=== PATIENT | male | born 1955 | race Caucasian/White ===

== ENCOUNTER 2019-04-14 00:21 | Emergency (ER) | payer OTHER ==
[2019-04-14] MEDS ORDERED: NA CHLORIDE 0.9% 1,000 ML ONE (01:03)
[2019-04-14 01:27] LABS: Absolute Lymphocytes (CBC) 1.3 K/uL (0.7-4.9); Basophils % 0.2 % (0-1.3); Lymphocytes % 10.6 % (15.3-44.8); MPV 9.8 fL (7.6-11.3); RBC Red Blood Cell Count 5.36 M/uL (4.33-5.43)
[2019-04-14 01:37] LABS: ALT/SGPT 38 U/L (12-78); AST/SGOT 18 U/L (15-37); Albumin 3.4 g/dL (3.4-5.0); Alkaline Phosphatase 87 U/L (45-117); BUN Blood Urea Nitrogen 18 mg/dL (7-18); Bicarbonate 28 mmol/L (21-32); Bilirubin Direct < 0.1 mg/dL (0-0.2); Bilirubin Total 0.3 mg/dL (0.2-1.0); Glucose Level 109 mg/dL (74-106); Lipase 111 U/L (73-393); Potassium 4.1 mmol/L (3.5-5.1); Protein, Total 6.7 g/dL (6.4-8.2); Sodium Level 139 mmol/L (136-145)
--- NOTE | 2019-04-14 03:17 | EDPHYS ---
Physician Documentation [facility] Name: Ramiro Cardoza Age: 63 yrs Sex: Male : 1955 Arrival Date: 04/14/2019 Time: 00:22 Bed 6 Private MD: ED Physician Watson Mcdowell HPI: 04/14 00:59 This 63 yrs old Male presents to ER via EMS with complaints of Abdominal Pain.pm1 00:59 The patient presents with abdominal pain in the suprapubic area. Onset: The pm1 symptoms/episode began/occurred last night, at 22:00. The symptoms do not radiate. Associated signs and symptoms: Pertinent negatives: nausea, vomiting, and diarrhea, chest pain, dysuria, fever, shortness of breath. The symptoms are described as burning. Modifying factors: The symptoms are alleviated by large bowel movement. the symptoms are aggravated by possibly from unusually large fast food lunch today. Severity of pain: in the emergency department the pain has improved markedly, is a 2 / 10. The patient has not experienced similar symptoms in the past. It is unknown whether or not the patient has recently seen a physician. Historical: - Allergies: 00:13 Codeine; jb4 - Home Meds: 00:13 Diltiazem Oral [Active]; Flexeril Oral [Active]; metoprolol [Active]; Medrol Oral jb4 [Active]; - PMHx: 00:13 Atrial Fib; chronic back pain; Hypertension; jb4 - PSHx: 00:13 None; jb4 - Immunization history:: Adult Immunizations up to date. - Social history:: Smoking status: Patient/guardian denies using tobacco, Patient uses alcohol, but reports only rare drinking. Patient/guardian denies using street drugs. - Ebola Screening: : No symptoms or risks identified at this time. ROS: 00:59 Constitutional: Negative for fever, chills, and weight loss, Neck: Negative for injury, pm1 pain, and swelling, Cardiovascular: Negative for chest pain, palpitations, and edema, Respiratory: Negative for shortness of breath, cough, wheezing, and pleuritic chest pain. 00:59 Back: Negative for injury and pain, : Negative for injury, bleeding, discharge, and swelling, MS/Extremity: Negative for injury and deformity, Skin: Negative for injury, rash, and discoloration, Neuro: Negative for headache, weakness, numbness, tingling, and seizure. 00:59 Abdomen/GI: Positive for abdominal pain, of the suprapubic area, Negative for nausea, vomiting, and diarrhea, constipation. Exam: 00:59 Constitutional: This is a well developed, well nourished patient who is awake, alert, pm1 and in no acute distress. Head/Face: Normocephalic, atraumatic. Neck: Trachea midline, no thyromegaly or masses palpated, and no cervical lymphadenopathy. Supple, full range of motion without nuchal rigidity, or vertebral point tenderness. No Meningismus. Chest/axilla: Normal chest wall appearance and motion. Nontender with no deformity. No lesions are appreciated. Cardiovascular: Regular rate and rhythm with a normal S1 and S2. No gallops, murmurs, or rubs. Normal PMI, no JVD. No pulse deficits. Respiratory: Lungs have equal breath sounds bilaterally, clear to auscultation and percussion. No rales, rhonchi or wheezes noted. No increased work of breathing, no retractions or nasal flaring. Back: No spinal tenderness. No costovertebral tenderness. Full range of motion. 00:59 Skin: Warm, dry with normal turgor. Normal color with no rashes, no lesions, and no evidence of cellulitis. MS/ Extremity: Pulses equal, no cyanosis. Neurovascular intact. Full, normal range of motion. 00:59 Abdomen/GI: Inspection: obese Bowel sounds: normal, Palpation: abdomen is soft and non-tender, in all quadrants, mass, is not appreciated, rebound tenderness, is not appreciated. 00:59 Neuro: Orientation: is normal, Motor: is normal, moves all fours. Vital Signs: 00:13 BP 167 / 83; Pulse 71; Resp 16; Temp 97.5(O); Pulse Ox 97% on R/A; Weight 129.27 kg jb4 (R); Height 6 ft. 0 in. (182.88 cm) (R); Pain 7/10; 01:00 BP 149 / 90; Pulse 64; Resp 16; Pulse Ox 96% on R/A; jb4 02:30 BP 147 / 88; Pulse 63; Resp 16; Pulse Ox 96% on R/A; jb4 03:30 BP 128 / 75; Pulse 55; Resp 18; Pulse Ox 95% on R/A; Pain 1/10; lp1 00:13 Body Mass Index 38.65 (129.27 kg, 182.88 cm) jb4 MDM: 00:23 Patient medically screened. pm1 00:59 ED course: Patient refused pain medications offered in the ER. Patient's pain currently pm1 05/14. 03:14 Data reviewed: vital signs. Data interpreted: Pulse oximetry: on room air is 96 %. pm1 Interpretation: normal. 03:15 Counseling: I had a detailed discussion with the patient and/or guardian regarding: the pm1 historical points, exam findings, and any diagnostic results supporting the discharge/admit diagnosis, lab results, radiology results, the need for outpatient follow up, to return to the emergency department if symptoms worsen or persist or if there are any questions or concerns that arise at home. 04/14 00:40 Order name: Basic Metabolic Panel; Complete Time: 01:49 pm1 04/14 00:40 Order name: CBC with Diff; Complete Time: 01:35 pm1 04/14 00:40 Order name: Creatinine for Radiology; Complete Time: 01:35 pm1 04/14 00:40 Order name: Hepatic Function; Complete Time: :49 pm1 04/14 00:40 Order name: Lipase; Complete Time: :49 pm1 04/14 00:40 Order name: CT Abd/Pelvis - IV Contrast Only pm1 04/14 00:40 Order name: IV Saline Lock; Complete Time: 01:04 pm1 04/14 00:40 Order name: Labs collected and sent; Complete Time: 01:05 pm1 Administered Medications: 01:04 Drug: NS 0.9% 1000 ml Route: IV; Rate: 1000 ml; Site: right antecubital; jb4 02:00 Follow up: Response: No adverse reaction; IV Status: Completed infusion; IV Intake: jb4 1000ml 03:30 Drug: Bentyl 20 mg Route: PO; lp1 03:40 Follow up: Response: Medication administered at discharge. lp1 Disposition: 04:21 Co-signature as Attending Physician, Watson Mcdowell MD I agree with the assessment and kdr plan of care. Disposition: 04/14/19 03:16 Discharged to Home. Impression: Unspecified abdominal pain. - Condition is Stable. - Discharge Instructions: Abdominal Pain, Adult. - Prescriptions for Bentyl 20 mg Oral Tablet - take 1 tablet by ORAL route every 6 hours As needed; 20 tablet. - Medication Reconciliation Form, Thank You Letter, Antibiotic Education, Prescription Opioid Use form. - Follow up: Emergency Department; When: As needed; Reason: Worsening of condition. Follow up: Private Physician; When: 2 - 3 days; Reason: Recheck today's complaints, Continuance of care, Re-evaluation by your physician. - Problem is new. - Symptoms have improved. Signatures: Dispatcher [employer] EDMS Watson Mcdowell MD MD kdr Martha Martinez RN RN lp1 Suman Martínez NP [employer] pm1 Yonas Emerson, RN RN jb4 Corrections: (The following items were deleted from the chart) 06:12 03:16 04/14/2019 03:16 Discharged to Home. Impression: Unspecified abdominal pain. lp1 Condition is Stable. Forms are Medication Reconciliation Form, Thank You Letter, Antibiotic Education, Prescription Opioid Use. Follow up: Emergency Department; When: As needed; Reason: Worsening of condition. Follow up: Private Physician; When: 2 - 3 days; Reason: Recheck today's complaints, Continuance of care, Re-evaluation by your physician. Problem is new. Symptoms have improved. pm1
--- NOTE | 2019-04-14 03:17 | ER ---
Nurse's Notes [facility] Name: Ramiro Cardoza Age: 63 yrs Sex: Male : 1955 Arrival Date: 04/14/2019 Time: 00:22 Bed 6 Private MD: Diagnosis: Unspecified abdominal pain Presentation: 04/14 00:13 Presenting complaint: Patient states: The pain was present prior to having a bm, I jb4 thought I was just constipated. After the bm I got no relief and the pain just got worse. EMS states: Pt starting having a sudden sever lower abdominal pain after having a bowel movement. the pain is described as an intense burning pain and a boxer punching him in the stomach. 00:13 Transition of care: patient was not received from another setting of care. Onset of jb4 symptoms was April 14, 2019. Risk Assessment: Do you want to hurt yourself or someone else? Patient reports no desire to harm self or others. Initial Sepsis Screen: Does the patient meet any 2 criteria? No. Patient's initial sepsis screen is negative. Does the patient have a suspected source of infection? Yes: Acute abdominal pain. Care prior to arrival: None. 00:13 Method Of Arrival: EMS: [facility] jb4 00:13 Acuity: VICKIE 3 jb4 Historical: - Allergies: 00:13 Codeine; jb4 - Home Meds: 00:13 Diltiazem Oral [Active]; Flexeril Oral [Active]; metoprolol [Active]; Medrol Oral jb4 [Active]; - PMHx: 00:13 Atrial Fib; chronic back pain; Hypertension; jb4 - PSHx: 00:13 None; jb4 - Immunization history:: Adult Immunizations up to date. - Social history:: Smoking status: Patient/guardian denies using tobacco, Patient uses alcohol, but reports only rare drinking. Patient/guardian denies using street drugs. - Ebola Screening: : No symptoms or risks identified at this time. Screenin:13 Abuse screen: Denies threats or abuse. Nutritional screening: No deficits noted. jb4 Tuberculosis screening: No symptoms or risk factors identified. Fall Risk None identified. Assessment: 00:13 General: Appears in no apparent distress. comfortable, Behavior is calm, cooperative, jb4 appropriate for age. Pain: Complains of pain in right lower quadrant and left lower quadrant Pain does not radiate. Pain currently is 7 out of 10 on a pain scale. Quality of pain is described as burning, Punching pain. Neuro: Level of Consciousness is awake, alert, obeys commands, Oriented to person, place, time, situation. Cardiovascular: Respiratory: Airway is patent Respiratory effort is even, unlabored, Respiratory pattern is regular, symmetrical. GI: No signs and/or symptoms were reported involving the gastrointestinal system. : No signs and/or symptoms were reported regarding the genitourinary system. EENT: No signs and/or symptoms were reported regarding the EENT system. Derm: Skin is intact, Skin is pink, warm \T\ dry. Musculoskeletal: Circulation, motion, and sensation intact. Range of motion: intact in all extremities. 01:05 Reassessment: Patient appears in no apparent distress at this time. Patient and/or jb4 family updated on plan of care and expected duration. Pain level reassessed. Patient is alert, oriented x 3, equal unlabored respirations, skin warm/dry/pink. 02:00 Reassessment: Patient appears in no apparent distress at this time. Patient and/or jb4 family updated on plan of care and expected duration. Pain level reassessed. Patient is alert, oriented x 3, equal unlabored respirations, skin warm/dry/pink. 02:53 Reassessment: Patient appears in no apparent distress at this time. Patient and/or jb4 family updated on plan of care and expected duration. Pain level reassessed. Patient is alert, oriented x 3, equal unlabored respirations, skin warm/dry/pink. 03:42 Reassessment: Patient appears in no apparent distress at this time. Patient is alert, lp1 oriented x 3, equal unlabored respirations, skin warm/dry/pink. Patient given discharge instructions; waiting for ride home. Vital Signs: 00:13 BP 167 / 83; Pulse 71; Resp 16; Temp 97.5(O); Pulse Ox 97% on R/A; Weight 129.27 kg jb4 (R); Height 6 ft. 0 in. (182.88 cm) (R); Pain 7/10; 01:00 BP 149 / 90; Pulse 64; Resp 16; Pulse Ox 96% on R/A; jb4 02:30 BP 147 / 88; Pulse 63; Resp 16; Pulse Ox 96% on R/A; jb4 03:30 BP 128 / 75; Pulse 55; Resp 18; Pulse Ox 95% on R/A; Pain 1/10; lp1 00:13 Body Mass Index 38.65 (129.27 kg, 182.88 cm) jb4 ED Course: 00:13 Arm band placed on right wrist. jb4 00:13 Patient has correct armband on for positive identification. Placed in gown. Bed in low jb4 position. Call light in reach. Side rails up X 1. 00:22 Patient arrived in ED. ds1 00:23 Suman Martínez NP is PHCP. pm1 00:23 Watson Mcdowell MD is Attending Physician. pm1 00:29 Triage completed. jb4 00:46 Yonas Emerson, RN is Primary Nurse. jb4 02:31 Inserted saline lock: 20 gauge in left antecubital area, using aseptic technique. oe 02:46 CT Abd/Pelvis - IV Contrast Only In Process Unspecified. EDMS 03:40 No provider procedures requiring assistance completed. IV discontinued, No lp1 redness/swelling at site. Pressure dressing applied. Administered Medications: 01:04 Drug: NS 0.9% 1000 ml Route: IV; Rate: 1000 ml; Site: right antecubital; jb4 02:00 Follow up: Response: No adverse reaction; IV Status: Completed infusion; IV Intake: jb4 1000ml 03:30 Drug: Bentyl 20 mg Route: PO; lp1 03:40 Follow up: Response: Medication administered at discharge. lp1 Outcome: 03:16 Discharge ordered by . pm1 03:40 Condition: good lp1 03:40 Discharge instructions given to patient, Instructed on discharge instructions, follow up and referral plans. medication usage, Demonstrated understanding of instructions, follow-up care, medications, Prescriptions given X 1. 06:12 Discharged to home ambulatory, via taxi cab lp1 06:12 Patient left the ED. lp1 Signatures: Dispatcher [employer] EDUT HernandezJohnstoni ds1 Martha Martinez RN RN lp1 Suman Martínez, [employer] SUPERVISOR pm1 Yonas Emerson, DAV RN jb4 Henrik Mosqueda oe Corrections: (The following items were deleted from the chart) 03:42 03:40 Discharged to home ambulatory, via taxi cab lp1 lp1
[2019-04-14] MEDS ORDERED: DICYCLOMINE HCL 10 MG CAP ONE (03:35)
[2019-04-14 06:24] VITALS: BP 128/75; O2SAT 95
--- NOTE | 2019-04-16 12:08 | RAD REPORT ---
EXAM DESCRIPTION: CT - Abdomen Pelvis W Contrast - 04/14/2019 6:01 am CLINICAL HISTORY: Severe lower abdominal pain after a bowel movement. COMPARISON: None. TECHNIQUE: Axial CT imaging of the abdomen and pelvis performed with intravenous contrast. Reformatt ed coronal and sagittal images reviewed. A dose reduction technique was utilized with automated exposure control according to patient size. FINDINGS: Clear lung bases. Heart is normal in size. Liver is enlarged to greater than 18 cm. Mild fatty liver infiltration. A few small hepatic cysts are present. Largest is in the superior medial right lobe, 2.6 cm. Normal gallbladder, spleen, pancreas, adrenal glands. Normal renal enhancement bilaterally. Anterior right renal small exophytic 1.[address] Significant aorta atherosclerosis. Normal aorta caliber. Normal caliber inferior vena cava. No me senteric adenopathy. Mesenteric vessels appear normal. Normal stomach. Small bowel loops appear normal. Appendix is normal in the right lower quadrant. Unre markable colon. No ascites or free air. No mesenteric adenopathy. Unremarkable bladder. Normal prostate. No pelvic free fluid. Moderate left and small right fat-contai sandhya inguinal hernia. Significant lower thoracic and moderate lumbar degenerative change. Benign disc calcification at T12-L1. Intact bony pelvis. Subchondral cystic changes in the right femoral head wi th adjacent sclerotic acetabular changes due to osteoarthritis. Unremarkable soft tissues. IMPRESSION: 1. No acute inflammatory finding within the abdomen or pelvis. 2. Hepatic cysts. 3. Right renal cyst. 4. Fat-containing bilateral inguinal hernias, left larger than right. Electronically signed by: Ellie Stone DO 04/14/2019 3:10 AM WEB ANALYST Due to temporary technical issues with the PACS/Fluency reporting system, reports are being signed by the in house radiologist as a courtesy to ensure prompt reporting. The interpreting radiologist is f ully responsible for the content of the report.
== END 2019-04-14 06:12 | disposition home or self-care (01) ==
LOC: ER 00:21
DX: R10.9 Unspecified abdominal pain (principal); I10 Essential (primary) hypertension; I48.91 Unspecified atrial fibrillation; Z88.5 Allergy status to narcotic agent
CPT/HCPCS: 85025; 80048; 36415; 80076; 83690; 74177; 96360; 99284; Q9967; J7030

== ENCOUNTER 2021-07-22 10:55 | Emergency (ER) | payer MEDICARE, OTHER ==
--- OUTSIDE RECORDS SUMMARY | 2021-07-22 10:57 | XMS REPORT | Continuity of Care Document ---
:1955 Author Organization [facility] t Address [address] [place] [address] Care Team Providers Name Role Phone Misti Whittington Primary Care Physician Radha Whittington Attending Clinician Unavailable Erick ALCARAZ Attending Clinician Payers Payer Name Policy Type Policy Number Effective Date Expiration Date S [facility] [id number] 2020 (MEDICARE 00:00:00 REPLACEMENT HMO) Problems Condition Condition Condition Status Onset Resolution Last Treating Co mments Source Name Details Category Date Date Treatment Clinician Date PAF PAF Disease Active Univers (paroxysma (paroxysma 1-29 it y of l atrial l atrial 00:00: [place] fibrillati fibrillati 00 Me dical on) on) Branch Pre-syncop Pre-syncop Disease Active U nivers e e 1-28 ity of 00:00: [address] Lactate Lactate Disease Active [facility] blood blood 9-30 [place] increased [place] [facility] Syncope Syncope Disease Active Univers 9-29 ity of 00:00: [place] 00 Medical Branch Atrial Atrial Disease Active Univers fibrillati fibrillati 5-06 it y of on with on with 00:00: [place] rapid rapid 00 Medical ventricula ventricula Br anch r response r response Obesity Obesity Disease Active Univers (BMI (BMI 5-06 ity of 30-39.9) 30-39.9) 00:00: Medical Branch HTN HTN Disease Active Univers (hypertens (hypertens 5-06 it y of ion) ion) 00:00: Medical Branch DEVI (acute DEVI (acute Disease Active U nivers kidney kidney -06 ity of injury) injury) 00:00: Medical Branch Post-opera Post-opera Disease Active U nivers tive state tive state 2-19 it y of 00:00: Medical Branch Morbid Morbid Disease Active [facility] obesity obesity 2-19 [place] of with body with body [place] mass index mass index 00 Me dical of of Branch 40.0-49.9 40.0-49.9 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 Added automatic ally from request for surgery [id number] Right hip Right hip Disease Active Uni vers pain pain 9-13 ity of 00:00: Medical Branch Allergies, Adverse Reactions, Alerts Allergy Allergy Status Severity Reaction(s) Onset Inactive Treating Comm ents Source Name Type Date Date Clinician Tree Propensi Active Other - See Sneezing U nivers Nuts ty to comments 2-18 uncontrol ity o f adverse 00:00: lably and [place] reaction 00 excessive Medic al s sweating Branch Codeine Propensi Active Unknown - Excessive U nivers ty to See comments 7-13 sleep ity of adverse 00:00: [place] reaction 00 Medical s Branch Social History Social Habit Start Date Stop Date Quantity Comments Source Alcohol intake 2020-12-01 2020-12-01 0 /d [facility] 00:00:00 00:00:00 Medical Branch Tobacco use and 2015-10-15 2015-10-15 Never used [facility] [place] exposure 00:00:00 00:00:00 Medical Branch Sex Ass[birth year] At [birth year] [facility] [place] 00:00:00 00:00:00 Medical Branch Smoking Status Start Date Stop Date Source Never smoker [facility] Medical Branch Medications Ordered Filled Start Stop Current Ordering Indication Dosage Frequency Signature Comments Components Source Medication Medication Date Date Medication? Clinician (SIG) Name Name carvediloL Yes [id number] 12.5mg Take 1 Univers 12.5 mg 4-14 tablet by ity of tablet 00:00: mouth 2 (two) Medical times Branch daily with meals. apixaban 2020-04 Yes 1358 2.5mg Take 1 Univer s 2.5 mg 1-05 tablet by ity of tablet 00:00: mouth (two) Medical times Branch daily. Indication s: atrial fibrillati on apixaban 2020-04 Yes 1358 2.5mg Take 1 Univer s 2.5 mg 1-05 tablet by ity of tablet 00:00: mouth (two) Medical times Branch daily. Indication s: atrial fibrillati on sildenafil Yes Take by Uni vers citrate 8-30 mouth as ity of (VIAGRA 09:07: needed. [place] ORAL) 19 Medical Branch sildenafil Yes Take by Uni vers citrate 8-30 mouth as ity of (VIAGRA 09:07: needed. [place] ORAL) 19 Medical Branch hydroCHLORO Yes [id number] 12.5mg Take 1 [facility] thiazide 8-30 capsule by ity o f 12.5 mg 00:00: mouth [place] capsule 00 daily. Medical Branch diltiazem Yes [id number] 240mg Take 1 Univers XR 240 mg 8-30 capsule by ity of 24 hr 00:00: mouth [place] capsule 00 daily. Medical Branch carvediloL Yes [id number] 12.5mg Take 1 Univers 12.5 mg 8-30 tablet by ity of tablet 00:00: mouth 2 (two) Medical times Branch daily with meals. hydroCHLORO Yes [id number] 12.5mg Take 1 Univers thiazide 8-30 capsule by ity o f 12.5 mg 00:00: mouth [place] capsule 00 daily. Medical Branch diltiazem Yes [id number] 240mg Take 1 Univers XR 240 mg 8-30 capsule by ity of 24 hr 00:00: mouth [place] capsule 00 daily. Medical Branch carvediloL 2021- No [id number] 12.5mg Take 1 [facility] 12.5 mg 8-30 04-14 tablet by ity of tablet 00:00: 00:00 mouth 2 [place] 00 :00 (two) Medical times Branch daily with meals. cyclobenzap Yes [id number] 10mg Take 1 Univers rine 10 mg 1-06 9102 tablet by ity of tablet 00:00: mouth 3 00 (three) Medical times Branch daily. cyclobenzap Yes [id number] 10mg Take 1 Univers rine 10 mg 1-06 9102 tablet by ity of tablet 00:00: mouth 3 00 (three) Medical times Branch daily. clotrimazol Yes [id number] Apply to Univers e-betametha 9-30 area(s) 2 ity of sone cream 00:00: (two) [place] 00 times Medical daily. Branch clotrimazol Yes [id number] Apply to Univers e-betametha 9-30 area(s) 2 ity of sone cream 00:00: (two) 00 times Medical daily. Branch Procedures This patient has no known procedures. Encounters Start End Encounter Admission Attending Care Care Encounter Source Date/Time Date/Time Type Type Clinicians Facility Department ID 2021-04-29 [facility] [id number] 13:43:45 [id number] [facility] 2021-04-29 Outpatient [facility], Padmini [facility] [id number] 13:24:16 [id number] [facility] 2021-04-29 [facility] [id number] 13:23:13 [id number] [facility] 2021-04-29 Outpatient [facility] [id number] 13:22:25 [id number] [facility] 2021-04-29 Outpatient Nelsy, Padmini [facility] [id number] 13:07:29 [id number] [facility] 2021-07-15 2021-07[id number] Univers 00:00:00 00:00:00 Judie DOS [place] [id number] ity of [id number] [phone] Ms dical NAL 9 [facility] 2021-06-24 2021-06-24 [facility] [id number] Univers 00:00:00 00:00:00 Judie [place] [id number] ity [id number] [phone] Ms dical NAL 9 [facility] 2021-03-03 2021-03-03 ambulatory [facility] [id number] [facility] 2020-11-28 2020-11-28 Outpatient [facility] [id number] [facility] 2020-11-28 2020-11-28 Out[facility] [id number] [facility] 2020-11-24 2020-11-24 Outpatient [facility] [id number] [facility] 2020-10-09 2020-10-09 Outpatient [facility] [id number] [facility] 2020-09-16 2020-09-16 Outpatient [facility] [id number] [facility] 2020-09-08 2020-09-08 Out[facility] [id number] [facility]-08-26 2020-08-26 [facility] [id number] [facility]00 [facility] 2020-08-04 2020-08-04 Outpatient [facility] [id number] [facility] 06:02:00 06:02:00 [id number] [facility] 2020-07-28 2020-07-28 Outpatient [facility] [id number] [facility] 08:00:00 08:00:00 [id number] [facility] Results This patient has no known results.
[2021-07-22 11:21] LABS: Absolute Lymphocytes (CBC) 1.6 K/uL (0.7-4.9); Lymphocytes % 19.7 % (15.3-44.8); MPV 8.8 fL (7.6-11.3)
[2021-07-22 11:22] LABS: Protime INR 1.28
[2021-07-22] MEDS ORDERED: NA CHLORIDE 0.9% 1,000 ML ONE (11:30)
[2021-07-22 11:46] LABS: ALT/SGPT 26 U/L (12-78); AST/SGOT 15 U/L (15-37); Albumin 3.5 g/dL (3.4-5.0); Alkaline Phosphatase 92 U/L (45-117); BUN Blood Urea Nitrogen 15 mg/dL (7-18); Bicarbonate 25 mmol/L (21-32); Bilirubin Direct 0.2 mg/dL (0-0.2); Bilirubin Total 0.6 mg/dL (0.2-1.0); Glucose Level 110 mg/dL (74-106); Magnesium 2.2 mg/dL (1.8-2.4); NT PRO-BNP 843 pg/mL (<125); Potassium 4.1 mmol/L (3.5-5.1); Protein, Total 6.8 g/dL (6.4-8.2); Sodium Level 139 mmol/L (136-145); Troponin High Sensitivity < 3.0 pg/mL (<58.9)
--- NOTE | 2021-07-22 11:47 | RAD REPORT ---
EXAM DESCRIPTION: RAD - Chest Single View - 07/22/2021 11:36 am CLINICAL HISTORY: COUGH COMPARISON: <Comparisons> FINDINGS: Lines: None. Lungs: No evidence of edema or pneumonia. Pleural: No significant pleural effusions or pneumothorax. Cardiac: The heart size is within normal limits. Bones: No acute fractures. Other: IMPRESSION: No acute cardiopulmonary disease.
[2021-07-22] MEDS ORDERED: DILTIAZEM HCL 60 MG TAB PO ONE (12:45)
--- NOTE | 2021-07-22 13:53 | EDPHYS ---
Physician Documentation [facility] Name: Ramiro Cardoza Age: 65 yrs Sex: Male : 1955 Arrival Date: 07/22/2021 Time: 10:57 Bed 20 Private MD: ED Physician Jose A Cerrato HPI: 07/22 13:47 This 65 yrs old Male presents to ER via EMS with complaints of Palpitations. santino 13:47 The patient presents with a history of irregular heart beat. Context: The symptoms santino occur at rest, with light activity. Onset: The symptoms/episode began/occurred this morning, today. Duration: The patient or guardian reports multiple episodes, with no pattern. Modifying factors: The symptoms are aggravated by nothing. The symptoms are alleviated by nothing. Associated signs and symptoms: Pertinent positives: palpitations. Severity of symptoms: At their worst the symptoms were mild in the emergency department the symptoms are unchanged. The patient has not experienced similar symptoms in the past. Historical: - Allergies: 11:19 Codeine; ap3 - Home Meds: 11:19 Diltiazem Oral [Active]; carvedilol 12.5 mg oral tab [Active]; Eliquis 2.5 mg oral tab ap3 [Active]; hydrochlorothiazide 12.5 mg Oral tab [Active]; - PMHx: 11:19 Atrial Fib; chronic back pain; Hypertension; ap3 - Immunization history:: Client reports receiving the 2nd dose of the Covid vaccine, and booster Flu vaccine is up to date. - Social history:: Smoking status: Patient denies any tobacco usage or history of. - Family history:: not pertinent. ROS: 13:47 Constitutional: Negative for fever, chills, and weight loss, Eyes: Negative for injury, santino pain, redness, and discharge, ENT: Negative for injury, pain, and discharge, Neck: Negative for injury, pain, and swelling, Respiratory: Negative for shortness of breath, cough, wheezing, and pleuritic chest pain, Abdomen/GI: Negative for abdominal pain, nausea, vomiting, diarrhea, and constipation, Back: Negative for injury and pain, : Negative for injury, bleeding, discharge, and swelling, MS/Extremity: Negative for injury and deformity, Skin: Negative for injury, rash, and discoloration, Neuro: Negative for headache, weakness, numbness, tingling, and seizure. 13:47 Cardiovascular: Positive for palpitations. Exam: 13:47 Constitutional: This is a well developed, well nourished patient who is awake, alert, santino and in no acute distress. Head/Face: Normocephalic, atraumatic. Eyes: Pupils equal round and reactive to light, extra-ocular motions intact. Lids and lashes normal. Conjunctiva and sclera are non-icteric and not injected. Cornea within normal limits. Periorbital areas with no swelling, redness, or edema. ENT: Nares patent. No nasal discharge, no septal abnormalities noted. Tympanic membranes are normal and external auditory canals are clear. Oropharynx with no redness, swelling, or masses, exudates, or evidence of obstruction, uvula midline. Mucous membranes moist. Neck: Trachea midline, no thyromegaly or masses palpated, and no cervical lymphadenopathy. Supple, full range of motion without nuchal rigidity, or vertebral point tenderness. No Meningismus. Chest/axilla: Normal chest wall appearance and motion. Nontender with no deformity. No lesions are appreciated. Cardiovascular: Regular rate and rhythm with a normal S1 and S2. No gallops, murmurs, or rubs. Normal PMI, no JVD. No pulse deficits. Respiratory: Lungs have equal breath sounds bilaterally, clear to auscultation and percussion. No rales, rhonchi or wheezes noted. No increased work of breathing, no retractions or nasal flaring. Abdomen/GI: Soft, non-tender, with normal bowel sounds. No distension or tympany. No guarding or rebound. No evidence of tenderness throughout. Back: No spinal tenderness. No costovertebral tenderness. Full range of motion. Male : Normal genitalia with no discharge or lesions. Skin: Warm, dry with normal turgor. Normal color with no rashes, no lesions, and no evidence of cellulitis. MS/ Extremity: Pulses equal, no cyanosis. Neurovascular intact. Full, normal range of motion. Neuro: Awake and alert, GCS 15, oriented to person, place, time, and situation. Cranial nerves II-XII grossly intact. Motor strength 5/5 in all extremities. Sensory grossly intact. Cerebellar exam normal. Normal gait. Psych: Awake, alert, with orientation to person, place and time. Behavior, mood, and affect are within normal limits. 13:47 Cardiovascular: Rate: normal, Rhythm: irregularly irregular, Pulses: Pulses are 4+ in bilateral radial, brachial, femoral, popliteal, posterior tibial and and dorsalis pedis arteries.. Heart sounds: normal, Edema: is not appreciated, JVD: is not appreciated. 13:47 ECG was reviewed by the Attending Physician. Vital Signs: 11:15 BP 142 / 68; Pulse 108; Resp 18; Temp 98.9; Pulse Ox 98% on R/A; Weight 108.86 kg; ap3 Height 6 ft. (182.88 cm); 12:42 BP 144 / 88; Pulse 88; Pulse Ox 97% on R/A; ap3 13:35 BP 113 / 84 Supine; Pulse 85; Pulse Ox 98% ; ap3 13:40 BP 110 / 79 Sitting; Pulse 72; Pulse Ox 98% ; ap3 13:45 BP 118 / 85; Pulse 78; Pulse Ox 99% ; ap3 11:15 Body Mass Index 32.55 (108.86 kg, 182.88 cm) ap3 MDM: 11:00 Patient medically screened. santino 13:50 RADHA Risk Score: 1 - Patient's age is greater or equal to 65, 1 - 3 or more CAD risk santino factors, 1 - Known CAD, Total Score = 3. Differential diagnosis: arrythmia, dehydration, stress disorder. Data reviewed: vital signs, nurses notes, EMS record, lab test result(s), EKG, radiologic studies, plain films. Data interpreted: quality assurance monitor chassis: rate is 77 beats/min, Pulse oximetry: on room air is 99 %. Test interpretation: by ED physician or midlevel provider: ECG, plain radiologic studies. Counseling: I had a detailed discussion with the patient and/or guardian regarding: the historical points, exam findings, and any diagnostic results supporting the discharge/admit diagnosis, lab results, radiology results, the need for outpatient follow up, for definitive care, a livestock haulier, a family practitioner. 07/22 11:02 Order name: Basic Metabolic Panel; Complete Time: 12: santino 07/22 11:02 Order name: CBC with Diff; Complete Time: 12:07/22 11:02 Order name: LFT's; Complete Time: 12:07/22 11:02 Order name: Magnesium; Complete Time: 12:01 [facility] 07/22 11:02 Order name: NT PRO-BNP; Complete Time: 12: [facility] 07/22 11:02 Order name: PT-INR; Complete Time: 12: [facility] 07/22 11:02 Order name: Troponin HS; Complete Time: 12: [facility] 07/22 11:02 Order name: XRAY Chest (1 view); Complete Time: 12: [facility] 07/22 11:02 Order name: EKG; Complete Time: 11: [facility] 07/22 11:02 Order name: TSH; Complete Time: 12: [facility] 07/22 11:02 Order name: SARS-COV-2 RT PCR (Document "Date of Onset" if Symptomatic); Complete Time: [facility] 13:37 07/22 11:02 Order name: Cardiac monitoring; Complete Time: 11: [facility] 07/22 11:02 Order name: EKG - Nurse/Tech; Complete Time: 11: [facility] 07/22 11:02 Order name: IV Saline Lock; Complete Time: 11: [facility] 07/22 11:02 Order name: Labs collected and sent; Complete Time: 11: [facility] 07/22 11:02 Order name: O2 Per Protocol; Complete Time: 11: [facility] 07/22 11:02 Order name: O2 Sat Monitoring; Complete Time: 11: [facility] 07/22 11:02 Order name: Urine Dipstick-Ancillary (obtain specimen); Complete Time: 14:02 [facility] 07/22 13:37 Order name: Orthostatics; Complete Time: 13:44 santino EC:47 Rate is 110 beats/min. Rhythm is irregularly irregular. QRS [place] is Normal. MN interval santino is normal. QRS interval is normal. QT interval is normal. No Q waves. T waves are Normal. No ST changes noted. Clinical impression: Atrial Fibrillation and No evidence of ischemia. Interpreted by me. Reviewed by me. Administered Medications: 11:32 Drug: NS 0.9% 1000 ml Route: IV; Rate: 125 ml/hr; Site: right antecubital; ap3 14:52 Follow up: IV Status: Completed infusion ap3 13:37 Not Given (Duplicate Order): Diltiazem 120 mg PO once santino 13:44 Drug: Diltiazem 60 mg Route: PO; ap3 14:52 Follow up: Response: No adverse reaction ap3 Disposition Summary: 07/22/21 13:52 Discharge Ordered Location: Home santino Problem: new santino Symptoms: have improved santino Condition: Stable santino Diagnosis - Chronic atrial fibrillation santino - Palpitations santino Followup: santino - With: Private Physician - When: 2 - 3 days - Reason: Recheck today's complaints, Continuance of care, Re-evaluation by your physician Followup: santino - With: Kenn Rouse MD - When: 2 - 3 days - Reason: Recheck today's complaints, Re-evaluation by your physician Discharge Instructions: - Discharge Summary Sheet santino - Atrial Fibrillation santino - Palpitations santino - Palpitations, [id number] santino - Atrial Fibrillation, Lfaf-ey-Aunt santino Forms: - Medication Reconciliation Form santino - Thank You Letter santino - Antibiotic Education santino - Prescription Opioid Use santino Signatures: Dispatcher [employer] Jose A Zacarias MD MD cha Prokisch, Amanda RN RN ap3
--- NOTE | 2021-07-22 13:53 | ER ---
Nurse's Notes [facility] Name: Ramiro Cardoza Age: 65 yrs Sex: Male : 1955 Arrival Date: 07/22/2021 Time: 10:57 Bed 20 Private MD: Diagnosis: Chronic atrial fibrillation;Palpitations Presentation: 07/22 10:15 Care prior to arrival: Medication(s) given: 250ml of LR's IV initiated. 20 GA, in the ap3 left antecubital area. 11:15 Chief complaint: EMS states: they were called to a home for a patient complaining of ap3 heart palpitations which began at approx 1000. Patient denies chest pain and shortness of breath. Patient reports this happens when he needs his medications adjusted, but he has been out of his HCTZ 12.5mg for approx 2 weeks now. Coronavirus screen: At this time, the client does not indicate any symptoms associated with coronavirus-19. Ebola Screen: No symptoms or risks identified at this time. Initial Sepsis Screen: Does the patient meet any 2 criteria? No. Patient's initial sepsis screen is negative. Does the patient have a suspected source of infection? No. Patient's initial sepsis screen is negative. Risk Assessment: Do you want to hurt yourself or someone else? Patient reports no desire to harm self or others. Onset of symptoms was July 22, 2021 at 10:00. 11:15 Method Of Arrival: EMS: [facility] ap3 11:15 Acuity: VICKIE 2 ap3 Triage Assessment: 11:20 General: Appears in no apparent distress. comfortable, Behavior is calm, cooperative. ap3 Pain: Denies pain. Neuro: Level of Consciousness is awake, alert, obeys commands, Oriented to person, place, time, situation, Appropriate for age. Cardiovascular: Reports palpitations, since 1000 this morning. Respiratory: Airway is patent Respiratory effort is even, unlabored, Denies shortness of breath. Historical: - Allergies: 11:19 Codeine; ap3 - Home Meds: 11:19 Diltiazem Oral [Active]; carvedilol 12.5 mg oral tab [Active]; Eliquis 2.5 mg oral tab ap3 [Active]; hydrochlorothiazide 12.5 mg Oral tab [Active]; - PMHx: 11:19 Atrial Fib; chronic back pain; Hypertension; ap3 - Immunization history:: Client reports receiving the 2nd dose of the Covid vaccine, and booster Flu vaccine is up to date. - Social history:: Smoking status: Patient denies any tobacco usage or history of. - Family history:: not pertinent. Screenin:21 Abuse screen: Denies threats or abuse. Nutritional screening: No deficits noted. ap3 Tuberculosis screening: No symptoms or risk factors identified. Fall Risk None identified. Assessment: 11:23 Reassessment: see triage assessment. ap3 12:42 Reassessment: Patient and/or family updated on plan of care and expected duration. Pain ap3 level reassessed. Patient is alert, oriented x 3, equal unlabored respirations, skin warm/dry/pink. 13:45 Reassessment: Patient and/or family updated on plan of care and expected duration. Pain ap3 level reassessed. Patient is alert, oriented x 3, equal unlabored respirations, skin warm/dry/pink. Patient states feeling better. Patient states symptoms have improved. Vital Signs: 11:15 BP 142 / 68; Pulse 108; Resp 18; Temp 98.9; Pulse Ox 98% on R/A; Weight 108.86 kg; ap3 Height 6 ft. (182.88 cm); 12:42 BP 144 / 88; Pulse 88; Pulse Ox 97% on R/A; ap3 13:35 BP 113 / 84 Supine; Pulse 85; Pulse Ox 98% ; ap3 13:40 BP 110 / 79 Sitting; Pulse 72; Pulse Ox 98% ; ap3 13:45 BP 118 / 85; Pulse 78; Pulse Ox 99% ; ap3 11:15 Body Mass Index 32.55 (108.86 kg, 182.88 cm) ap3 ED Course: 10:57 Patient arrived in ED. iw 11:00 Jose A Cerrato MD is Attending Physician. santino 11:10 EKG done, by ED staff, reviewed by Jose A Cerrato MD. em1 11:10 Inserted saline lock: 20 gauge in right antecubital area, using aseptic technique. ap3 Blood collected. 11:14 Ping Raygoza, RN is Primary Nurse. ap3 11:19 Triage completed. ap3 11:21 Arm band placed on right wrist. EKG completed in triage. Results shown to MD. ap3 11:21 Bed in low position. Call light in reach. Side rails up X 1. traffic monitor specialist on. Pulse ap3 ox on. NIBP on. 11:37 XRAY Chest (1 view) In Process Unspecified. EDKS 13:52 Kenn Rouse MD is Referral Physician. [facility] 14:51 No provider procedures requiring assistance completed. IV discontinued, intact, ap3 bleeding controlled, No redness/swelling at site. Pressure dressing applied. Administered Medications: 11:32 Drug: NS 0.9% 1000 ml Route: IV; Rate: 125 ml/hr; Site: right antecubital; ap3 14:52 Follow up: IV Status: Completed infusion ap3 13:37 Not Given (Duplicate Order): Diltiazem 120 mg PO once [facility] 13:44 Drug: Diltiazem 60 mg Route: PO; ap3 14:52 Follow up: Response: No adverse reaction ap3 Outcome: 13:52 Discharge ordered by . santino 14:52 Discharged to home ambulatory, with family. ap3 14:52 Condition: good 14:52 Discharge instructions given to patient, Instructed on discharge instructions, follow up and referral plans. Demonstrated understanding of instructions, follow-up care. 14:52 Patient left the ED. ap3 Signatures: Dispatcher [employer] EDKS Jose A Cerrato MD MD cha Williams, Irene, RN Norbert Boyd Amanda, RN RN ap3
[2021-07-22 19:59] VITALS: TEMP 98.9
[2021-07-22 20:05] VITALS: BP 118/85; O2SAT 99
== END 2021-07-22 14:52 | disposition home or self-care (01) ==
LOC: ER 10:55
DX: I48.20 Chronic atrial fibrillation, unspecified (principal); I10 Essential (primary) hypertension; Z20.822 Contact with and (suspected) exposure to COVID-19; Z88.5 Allergy status to narcotic agent
CPT/HCPCS: 96361; 93005; 85025; 80048; 36415; 83735; 85610; 80076; 84443; 84484; 83880; 71045; 96360; 99285; U0003; J7030

== ENCOUNTER 2023-08-27 10:05 | Inpatient (IN) | payer MEDICARE ==
--- OUTSIDE RECORDS SUMMARY | 2023-08-27 10:10 | XMS REPORT | Continuity of Care Document ---
Author Name Unknown Address [address] [facility] [address]. [address] [place] [address] [facility] thconnect Address [address] [facility]. [address] [place] [address] Care Team Providers Care Verification Lead Name Role Phone Nelsy Padmini Primary Care Physician [phone] Carrie Gonzalez Attending Clinician Unavailable Padmini Whittington Attending Clinician Unavailable Conroy_R Attending Clinician Unavailable Judie Maddox MD Attending Clinician [phone] Doctor Unassigned, [place] Attending Clinician U navailable Goldfarb_R Attending Clinician Unavailable JUDIE MADDOX Attending Clinician Unavailable BWilliams Attending Clinician Unavailable ANDIE CERVANTES Attending Clinician Unava ilable Lab, [facility] Fam Pob I Attending Clinician Unavailab Shanel Snyder Attending Clinician [phone] Visit, Adc Nurse Attending Clinician Unavailable Gloria FATIMA, Izabella Rivera Attending Clinician [phone] Gurmeet Gutierrez MD Attending Clinician [phone] Esha Echevarria MD Attending Clinician [phone] ESHA ECHEVARRIA Attending Clinician Unavailabl e Conroy_R Admitting Clinician Unavailable Goldfarb_R Admitting Clinician Unavailable BWilliams Admitting Clinician Unavailable Gurmeet Gutierrez MD Admitting Clinician [phone] Payers Payer Name Policy Type Policy Number Effective Date Expiration Date Source [facility] (MEDICARE REPLACEMENT HMO) [id number] 2020 00:00:00 [place] [id number] 2020 00:00:00 [facility] TOOTIE JIANG FROM [facility] [id number] 2019 00:00:00 Problems Condition Name Condition Details Condition Category Status Onset Date Resolution Date Last Treatment Date Treating Clinician Comments Source Raised prostate specific antigen Raised Prostate Specific Antigen Problem Active 2021-04 2 00:00: 00 [facility] Lower urinary tract symptoms due to benign prostatic hypertroph y Lower Urinary Tract Symptoms Due to Benign Prostatic Hypertroph y Problem Active 2021-04 2 00:00: 00 [facility] Pre-syncop e Pre-syncop e Disease Active 1 00:00: 00 [facility] Lactate blood increased Lactate blood increased Disease Active 01-01 00:00: 00 [facility] Syncope Syncope Disease Active 12-31 00:00: 00 [facility] Atrial fibrillati on with rapid ventricula r response Atrial fibrillati on with rapid ventricula r response Disease Active 08-07 00:00: 00 [facility] Obesity (BMI 30-39.9) Obesity (BMI 30-39.9) Disease Active 08-07 00:00: 00 [facility] HTN (hypertens ion) HTN (hypertens ion) Disease Active 08-07 00:00: 00 [facility] DEVI (acute kidney injury) DEVI (acute kidney injury) Disease Active 08-07 00:00: 00 [facility] Post-opera tive state Post-opera tive state Disease Active 05-23 00:00: 00 [facility] Morbid obesity with body mass index of 40.0-49.9 Morbid obesity with body mass index of 40.0-49.9 Disease Active 05-23 00:00: 00 [facility] Retinal detachment , right Retinal detachment , right Disease Active 05-22 00:00: 00 Overview: Formattin g of this note might be different from the original. Added automatic ally from request for surgery [id number] [facility] Right hip pain Right hip pain Disease Active 12-15 00:00: 00 [facility] [id number] Chronic atrial fibrillati on Problem [facility] [id number] Chronic anticoagul ation Problem [facility] [id number] Cancer of prostate with intermedia te recurrence risk (stage T2b-c or [place] 7 or PSA 10-20) Problem [facility] [id number] Mixed hyperlipid emia Problem [facility] [id number] Paroxysmal atrial fibrillati on Problem [facility] [id number] Drug-induc ed erectile dysfunctio n Problem [facility] Erectile dysfunctio n Erectile dysfunctio n Problem [facility] [id number] Depression with anxiety Problem [facility] [id number] Essential hypertensi on Problem [facility] [id number] Chronic fatigue Problem [facility] [id number] Primary osteoarthr itis of right hip Problem [facility] Allergies, Adverse Reactions, Alerts Allergy Name Allergy Type Status Severity Reaction(s) Onset Date Inactive Date Treating Clinician Comments Source TREE NUTS Food Active Other-Cmnt 05-22 00:00: 00 [facility] Tree Nuts Propensi ty to adverse reaction s Active Other - See comments 05-22 00:00: 00 Sneezing uncontrol lably and excessive sweating [facility] Codeine Propensi ty to adverse reaction s Active Unknown - See comments 10-14 00:00: 00 Excessive sleep [facility] CODEINE DRUG INGREDI Active Unknown-Cmnt 10-14 00:00: 00 [facility] triamcin olone triamcin olone Active rash [facility] Social History Social Habit Start Date Stop Date Quantity Comments Source History of Tobacco Use [facility] Sex Assigned At [facility] Exposure to SARS-CoV-2 (event) 2021-07-27 00:00:00 2021-08-06 08:52:00 Not sure [facility] Alcohol intake 2021-08-06 00:00:00 2021-08-06 00:00:00 0 /d [facility] Tobacco use and exposure 2015-12-16 00:00:00 2015-12-16 00:00:00 Smokeless tobacco non-user [facility] Smoking Status Start Date Stop Date Source Never Smoker [facility] Medications Ordered Medication Name Filled Medication Name Start Date Stop Date Current Medication? Ordering Clinician Indication Dosage Frequency Signature (SIG) Comments Components Source diltiazem XR 240 mg 24 hr capsule 3-02 00:00: 00 Yes [id number] 240mg Take 1 capsule by mouth in the morning. Need follow up for refills. [facility] apixaban 2.5 mg tablet 8-08 00:00: 00 Yes 1358 2.5mg Take 1 tablet by mouth in the morning and 1 tablet in the evening. Indication s: atrial fibrillati on [facility] apixaban 2.5 mg tablet 7-12 00:00: 00 11-09 00:00 :00 No 1358 2.5mg Take 1 tablet by mouth in the morning and 1 tablet in the evening. Indication s: atrial fibrillati on [facility] diltiazem XR 240 mg 24 hr capsule 6-21 00:00: 00 06-03 00:00 :00 No [id number] 240mg Take 1 capsule by mouth daily. [facility] apixaban 2.5 mg tablet 05 00:00: 00 09-02 00:00 :00 No 1358 2.5mg Take 1 tablet by mouth 2 (two) times daily. Indication s: atrial fibrillati on [facility] sildenafil citrate (VIAGRA ORAL) 12-01 09:07: 19 Yes Take by mouth as needed. [facility] Sildenafil Citrate 100 MG Sildenafil Citrate 100 MG 615 00:00: 00 10-11 00:00 :00 No 1{table t_as_ne eded} Sildenafil Citrate 100 MG cyclobenzap rine 10 mg tablet 04-09 00:00: 00 Yes [id number] 9102 10mg Take 1 tablet by mouth 3 (three) times daily. [facility] clotrimazol e-betametha sone cream 01-01 00:00: 00 Yes [id number] Apply to area(s) 2 (two) times daily. [facility] Eliquis 2.5 mg tablet Eliquis 2.5 mg tablet No Eliquis 2.5 mg tablet [facility] hydrochloro thiazide 12.5 mg capsule hydrochloro thiazide 12.5 mg capsule No hydrochlor othiazide 12.5 mg capsule [facility] metoprolol tartrate 25 mg tablet metoprolol tartrate 25 mg tablet No metoprolol tartrate 25 mg tablet [facility] prednisone 20 mg tablet prednisone 20 mg tablet No prednisone 20 mg tablet [facility] sildenafil 100 mg tablet sildenafil 100 mg tablet No sildenafil 100 mg tablet [facility] sodium,pota ssium,mag sulfates 17.5 gram-3.13 gram-1.6 gram oral soln sodium,pota ssium,mag sulfates 17.5 gram-3.13 gram-1.6 gram oral soln No sodium,pot assium,mag sulfates 17.5 gram-3.13 gram-1.6 gram oral soln [facility] sulfamethox azole 800 mg-trimetho prim 160 mg tablet Take 1 tablet every 12 hours by oral route for 3 days. sulfamethox azole 800 mg-trimetho prim 160 mg tablet Take 1 tablet every 12 hours by oral route for 3 days. No sulfametho xazole 800 mg-trimeth oprim 160 mg tablet Take 1 tablet every 12 hours by oral route for 3 days. [facility] albuterol sulfate HFA 90 mcg/actuati on aerosol inhaler albuterol sulfate HFA 90 mcg/actuati on aerosol inhaler No albuterol sulfate HFA 90 mcg/actuat ion aerosol inhaler [facility] Metoprolol Tartrate 25 MG Metoprolol Tartrate 25 MG No 1{table t_with_ food} BID Metoprolol Tartrate 25 MG Eliquis 2.5 mg 2.5 mg Eliquis 2.5 mg 2.5 mg No 1{table t} BID Eliquis 2.5 mg 2.5 mg Triamcinolo ne Acetonide 0.1 % Triamcinolo ne Acetonide 0.1 % No BID Triamcinol one Acetonide 0.1 % dilTIAZem HCl ER 240 MG dilTIAZem HCl ER 240 MG No 1{capsu le} QD dilTIAZem HCl ER 240 MG Sildenafil Citrate 100 MG Sildenafil Citrate 100 MG No 1{table t_as_ne eded} QD Sildenafil Citrate 100 MG Metoprolol Tartrate 25 MG Metoprolol Tartrate 25 MG No 1{table t_with_ food} BID Metoprolol Tartrate 25 MG Eliquis 2.5 mg 2.5 mg Eliquis 2.5 mg 2.5 mg No 1{table t} BID Eliquis 2.5 mg 2.5 mg Triamcinolo ne Acetonide 0.1 % Triamcinolo ne Acetonide 0.1 % No BID Triamcinol one Acetonide 0.1 % dilTIAZem HCl ER 240 MG dilTIAZem HCl ER 240 MG No 1{capsu le} QD dilTIAZem HCl ER 240 MG Sildenafil Citrate 100 MG Sildenafil Citrate 100 MG No 1{table t_as_ne eded} QD Sildenafil Citrate 100 MG Metoprolol Tartrate 25 MG Metoprolol Tartrate 25 MG No 1{table t_with_ food} BID Metoprolol Tartrate 25 MG Eliquis 2.5 mg 2.5 mg Eliquis 2.5 mg 2.5 mg No 1{table t} BID Eliquis 2.5 mg 2.5 mg Triamcinolo ne Acetonide 0.1 % Triamcinolo ne Acetonide 0.1 % No BID Triamcinol one Acetonide 0.1 % dilTIAZem HCl ER 240 MG dilTIAZem HCl ER 240 MG No 1{capsu le} QD dilTIAZem HCl ER 240 MG Sildenafil Citrate 100 MG Sildenafil Citrate 100 MG No 1{table t_as_ne eded} QD Sildenafil Citrate 100 MG Metoprolol Tartrate 25 MG Metoprolol Tartrate 25 MG No 1{table t_with_ food} BID Metoprolol Tartrate 25 MG Metoprolol Tartrate 25 MG Metoprolol Tartrate 25 MG No Metoprolol Tartrate 25 MG Triamcinolo ne Acetonide 0.1 % Triamcinolo ne Acetonide 0.1 % No BID Triamcinol one Acetonide 0.1 % dilTIAZem HCl ER 240 MG dilTIAZem HCl ER 240 MG No 1{capsu le} QD dilTIAZem HCl ER 240 MG Rosuvastati n Calcium 20 MG Rosuvastati n Calcium 20 MG No 1{table t} QD Rosuvastat in Calcium 20 MG Sildenafil Citrate 100 MG Sildenafil Citrate 100 MG No 1{table t_as_ne eded} QD Sildenafil Citrate 100 MG Eliquis 2.5 mg 2.5 mg Eliquis 2.5 mg 2.5 mg No 1{table t} BID Eliquis 2.5 mg 2.5 mg Metoprolol Tartrate 25 MG Metoprolol Tartrate 25 MG No Metoprolol Tartrate 25 MG Triamcinolo ne Acetonide 0.1 % Triamcinolo ne Acetonide 0.1 % No BID Triamcinol one Acetonide 0.1 % dilTIAZem HCl ER 240 MG dilTIAZem HCl ER 240 MG No 1{capsu le} QD dilTIAZem HCl ER 240 MG Rosuvastati n Calcium 20 MG Rosuvastati n Calcium 20 MG No 1{table t} QD Rosuvastat in Calcium 20 MG Sildenafil Citrate 100 MG Sildenafil Citrate 100 MG No 1{table t_as_ne eded} QD Sildenafil Citrate 100 MG Eliquis 2.5 mg 2.5 mg Eliquis 2.5 mg 2.5 mg No 1{table t} BID Eliquis 2.5 mg 2.5 mg Metoprolol Tartrate 25 MG Metoprolol Tartrate 25 MG No Metoprolol Tartrate 25 MG Triamcinolo ne Acetonide 0.1 % Triamcinolo ne Acetonide 0.1 % No BID Triamcinol one Acetonide 0.1 % dilTIAZem HCl ER 240 MG dilTIAZem HCl ER 240 MG No 1{capsu le} QD dilTIAZem HCl ER 240 MG Rosuvastati n Calcium 20 MG Rosuvastati n Calcium 20 MG No 1{table t} QD Rosuvastat in Calcium 20 MG Sildenafil Citrate 100 MG Sildenafil Citrate 100 MG No 1{table t_as_ne eded} QD Sildenafil Citrate 100 MG Eliquis 2.5 mg 2.5 mg Eliquis 2.5 mg 2.5 mg No 1{table t} BID Eliquis 2.5 mg 2.5 mg dilTIAZem HCl ER 240 MG dilTIAZem HCl ER 240 MG No 1{capsu le} QD dilTIAZem HCl ER 240 MG Eliquis 2.5 mg 2.5 mg Eliquis 2.5 mg 2.5 mg No 1{table t} BID Eliquis 2.5 mg 2.5 mg Triamcinolo ne Acetonide 0.1 % Triamcinolo ne Acetonide 0.1 % No BID Triamcinol one Acetonide 0.1 % Metoprolol Tartrate 25 MG Metoprolol Tartrate 25 MG No Metoprolol Tartrate 25 MG Rosuvastati n Calcium 20 MG Rosuvastati n Calcium 20 MG No 1{table t} QD Rosuvastat in Calcium 20 MG Sildenafil Citrate 100 MG Sildenafil Citrate 100 MG No 1{table t_as_ne eded} QD Sildenafil Citrate 100 MG dilTIAZem HCl ER 240 MG dilTIAZem HCl ER 240 MG No 1{capsu le} QD dilTIAZem HCl ER 240 MG Eliquis 2.5 mg 2.5 mg Eliquis 2.5 mg 2.5 mg No 1{table t} BID Eliquis 2.5 mg 2.5 mg Triamcinolo ne Acetonide 0.1 % Triamcinolo ne Acetonide 0.1 % No BID Triamcinol one Acetonide 0.1 % Metoprolol Tartrate 25 MG Metoprolol Tartrate 25 MG No Metoprolol Tartrate 25 MG Rosuvastati n Calcium 20 MG Rosuvastati n Calcium 20 MG No 1{table t} QD Rosuvastat in Calcium 20 MG Sildenafil Citrate 100 MG Sildenafil Citrate 100 MG No 1{table t_as_ne eded} QD Sildenafil Citrate 100 MG dilTIAZem HCl ER 240 MG dilTIAZem HCl ER 240 MG No 1{capsu le} QD dilTIAZem HCl ER 240 MG Eliquis 2.5 mg 2.5 mg Eliquis 2.5 mg 2.5 mg No 1{table t} BID Eliquis 2.5 mg 2.5 mg Triamcinolo ne Acetonide 0.1 % Triamcinolo ne Acetonide 0.1 % No BID Triamcinol one Acetonide 0.1 % Metoprolol Tartrate 25 MG Metoprolol Tartrate 25 MG No Metoprolol Tartrate 25 MG Rosuvastati n Calcium 20 MG Rosuvastati n Calcium 20 MG No 1{table t} QD Rosuvastat in Calcium 20 MG Sildenafil Citrate 100 MG Sildenafil Citrate 100 MG No 1{table t_as_ne eded} QD Sildenafil Citrate 100 MG dilTIAZem HCl ER 240 MG dilTIAZem HCl ER 240 MG No 1{capsu le} QD dilTIAZem HCl ER 240 MG Eliquis 2.5 mg 2.5 mg Eliquis 2.5 mg 2.5 mg No 1{table t} BID Eliquis 2.5 mg 2.5 mg Triamcinolo ne Acetonide 0.1 % Triamcinolo ne Acetonide 0.1 % No BID Triamcinol one Acetonide 0.1 % Metoprolol Tartrate 25 MG Metoprolol Tartrate 25 MG No Metoprolol Tartrate 25 MG Rosuvastati n Calcium 20 MG Rosuvastati n Calcium 20 MG No 1{table t} QD Rosuvastat in Calcium 20 MG Sildenafil Citrate 100 MG Sildenafil Citrate 100 MG No 1{table t_as_ne eded} QD Sildenafil Citrate 100 MG Eliquis 2.5 mg 2.5 mg Eliquis 2.5 mg 2.5 mg No 1{table t} BID Eliquis 2.5 mg 2.5 mg Rosuvastati n Calcium 20 MG Rosuvastati n Calcium 20 MG No 1{table t} QD Rosuvastat in Calcium 20 MG Metoprolol Tartrate 25 MG Metoprolol Tartrate 25 MG No Metoprolol Tartrate 25 MG dilTIAZem HCl ER 240 MG dilTIAZem HCl ER 240 MG No 1{capsu le} QD dilTIAZem HCl ER 240 MG Sildenafil Citrate 100 MG Sildenafil Citrate 100 MG No 1{table t_as_ne eded} QD Sildenafil Citrate 100 MG Eliquis 2.5 mg 2.5 mg Eliquis 2.5 mg 2.5 mg No 1{table t} BID Eliquis 2.5 mg 2.5 mg Rosuvastati n Calcium 20 MG Rosuvastati n Calcium 20 MG No 1{table t} QD Rosuvastat in Calcium 20 MG Metoprolol Tartrate 25 MG Metoprolol Tartrate 25 MG No Metoprolol Tartrate 25 MG dilTIAZem HCl ER 240 MG dilTIAZem HCl ER 240 MG No 1{capsu le} QD dilTIAZem HCl ER 240 MG Sildenafil Citrate 100 MG Sildenafil Citrate 100 MG No 1{table t_as_ne eded} QD Sildenafil Citrate 100 MG Sildenafil Citrate 100 MG Sildenafil Citrate 100 MG No 1{table t_as_ne eded} QD Sildenafil Citrate 100 MG Eliquis 2.5 mg 2.5 mg Eliquis 2.5 mg 2.5 mg No 1{table t} BID Eliquis 2.5 mg 2.5 mg Metoprolol Tartrate 25 MG Metoprolol Tartrate 25 MG No 1{table t_with_ food} BID Metoprolol Tartrate 25 MG dilTIAZem HCl ER 240 MG dilTIAZem HCl ER 240 MG No 1{capsu le} QD dilTIAZem HCl ER 240 MG Triamcinolo ne Acetonide 0.1 % Triamcinolo ne Acetonide 0.1 % No BID Triamcinol one Acetonide 0.1 % Eliquis 2.5 mg 2.5 mg Eliquis 2.5 mg 2.5 mg No 1{table t} BID Eliquis 2.5 mg 2.5 mg Triamcinolo ne Acetonide 0.1 % Triamcinolo ne Acetonide 0.1 % No BID Triamcinol one Acetonide 0.1 % Carvedilol 12.5 MG Carvedilol 12.5 MG No 1{table t_with_ food} BID Carvedilol 12.5 MG hydroCHLORO thiazide 12.5 MG hydroCHLORO thiazide 12.5 MG No 1{capsu le_in_t he_morn ing} QD hydroCHLOR Othiazide 12.5 MG dilTIAZem HCl ER Beads 240 MG dilTIAZem HCl ER Beads 240 MG No 1{capsu le} QD dilTIAZem HCl ER Beads 240 MG Metoprolol Tartrate 25 MG Metoprolol Tartrate 25 MG No 1{table t_with_ food} BID Metoprolol Tartrate 25 MG dilTIAZem HCl ER 240 MG dilTIAZem HCl ER 240 MG No 1{capsu le} QD dilTIAZem HCl ER 240 MG Sildenafil Citrate 100 MG Sildenafil Citrate 100 MG No 1{table t_as_ne eded} QD Sildenafil Citrate 100 MG Eliquis 2.5 mg 2.5 mg Eliquis 2.5 mg 2.5 mg No 1{table t} BID Eliquis 2.5 mg 2.5 mg Metoprolol Tartrate 25 MG Metoprolol Tartrate 25 MG No 1{table t_with_ food} BID Metoprolol Tartrate 25 MG dilTIAZem HCl ER 240 MG dilTIAZem HCl ER 240 MG No 1{capsu le} QD dilTIAZem HCl ER 240 MG Triamcinolo ne Acetonide 0.1 % Triamcinolo ne Acetonide 0.1 % No BID Triamcinol one Acetonide 0.1 % Eliquis 2.5 mg 2.5 mg Eliquis 2.5 mg 2.5 mg No 1{table t} BID Eliquis 2.5 mg 2.5 mg Triamcinolo ne Acetonide 0.1 % Triamcinolo ne Acetonide 0.1 % No BID Triamcinol one Acetonide 0.1 % dilTIAZem HCl ER 240 MG dilTIAZem HCl ER 240 MG No 1{capsu le} QD dilTIAZem HCl ER 240 MG Sildenafil Citrate 100 MG Sildenafil Citrate 100 MG No 1{table t_as_ne eded} QD Sildenafil Citrate 100 MG albuterol sulfate HFA 90 mcg/actuati on aerosol inhaler albuterol sulfate HFA 90 mcg/actuati on aerosol inhaler No albuterol sulfate HFA 90 mcg/actuat ion aerosol inhaler [facility] azithromyci n 250 mg tablet azithromyci n 250 mg tablet No azithromyc in 250 mg tablet [facility] carvedilol 12.5 mg tablet carvedilol 12.5 mg tablet No carvedilol 12.5 mg tablet [facility] Eliquis 2.5 mg tablet Eliquis 2.5 mg tablet No Eliquis 2.5 mg tablet [facility] hydrochloro thiazide 12.5 mg capsule hydrochloro thiazide 12.5 mg capsule No hydrochlor othiazide 12.5 mg capsule [facility] metoprolol tartrate 25 mg tablet metoprolol tartrate 25 mg tablet No metoprolol tartrate 25 mg tablet [facility] prednisone 20 mg tablet prednisone 20 mg tablet No prednisone 20 mg tablet [facility] sildenafil 100 mg tablet sildenafil 100 mg tablet No sildenafil 100 mg tablet [facility] sodium,pota ssium,mag sulfates 17.5 gram-3.13 gram-1.6 gram oral soln sodium,pota ssium,mag sulfates 17.5 gram-3.13 gram-1.6 gram oral soln No sodium,pot assium,mag sulfates 17.5 gram-3.13 gram-1.6 gram oral soln [facility] sulfamethox azole 800 mg-trimetho prim 160 mg tablet Take 1 tablet every 12 hours by oral route for 3 days. sulfamethox azole 800 mg-trimetho prim 160 mg tablet Take 1 tablet every 12 hours by oral route for 3 days. No sulfametho xazole 800 mg-trimeth oprim 160 mg tablet Take 1 tablet every 12 hours by oral route for 3 days. [facility] azithromyci n 250 mg tablet azithromyci n 250 mg tablet No azithromyc in 250 mg tablet [facility] carvedilol 12.5 mg tablet carvedilol 12.5 mg tablet No carvedilol 12.5 mg tablet [facility] diltiazem CD 240 mg capsule,ext ended release 24 hr diltiazem CD 240 mg capsule,ext ended release 24 hr No diltiazem CD 240 mg capsule,ex tended release 24 hr [facility] Eliquis 2.5 mg tablet Eliquis 2.5 mg tablet No Eliquis 2.5 mg tablet [facility] hydrochloro thiazide 12.5 mg capsule hydrochloro thiazide 12.5 mg capsule No hydrochlor othiazide 12.5 mg capsule [facility] metoprolol tartrate 25 mg tablet metoprolol tartrate 25 mg tablet No metoprolol tartrate 25 mg tablet [facility] prednisone 20 mg tablet prednisone 20 mg tablet No prednisone 20 mg tablet [facility] sildenafil 100 mg tablet sildenafil 100 mg tablet No sildenafil 100 mg tablet [facility] sodium,pota ssium,mag sulfates 17.5 gram-3.13 gram-1.6 gram oral soln sodium,pota ssium,mag sulfates 17.5 gram-3.13 gram-1.6 gram oral soln No sodium,pot assium,mag sulfates 17.5 gram-3.13 gram-1.6 gram oral soln [facility] albuterol sulfate HFA 90 mcg/actuati on aerosol inhaler albuterol sulfate HFA 90 mcg/actuati on aerosol inhaler No albuterol sulfate HFA 90 mcg/actuat ion aerosol inhaler [facility] azithromyci n 250 mg tablet azithromyci n 250 mg tablet No azithromyc in 250 mg tablet [facility] carvedilol 12.5 mg tablet carvedilol 12.5 mg tablet No carvedilol 12.5 mg tablet [facility] diltiazem CD 240 mg capsule,ext ended release 24 hr diltiazem CD 240 mg capsule,ext ended release 24 hr No diltiazem CD 240 mg capsule,ex tended release 24 hr [facility] Eliquis 2.5 mg tablet Eliquis 2.5 mg tablet No Eliquis 2.5 mg tablet [facility] hydrochloro thiazide 12.5 mg capsule hydrochloro thiazide 12.5 mg capsule No hydrochlor othiazide 12.5 mg capsule [facility] metoprolol tartrate 25 mg tablet metoprolol tartrate 25 mg tablet No metoprolol tartrate 25 mg tablet [facility] prednisone 20 mg tablet prednisone 20 mg tablet No prednisone 20 mg tablet [facility] sildenafil 100 mg tablet sildenafil 100 mg tablet No sildenafil 100 mg tablet [facility] sodium,pota ssium,mag sulfates 17.5 gram-3.13 gram-1.6 gram oral soln sodium,pota ssium,mag sulfates 17.5 gram-3.13 gram-1.6 gram oral soln No sodium,pot assium,mag sulfates 17.5 gram-3.13 gram-1.6 gram oral soln [facility] albuterol sulfate HFA 90 mcg/actuati on aerosol inhaler albuterol sulfate HFA 90 mcg/actuati on aerosol inhaler No albuterol sulfate HFA 90 mcg/actuat ion aerosol inhaler [facility] azithromyci n 250 mg tablet azithromyci n 250 mg tablet No azithromyc in 250 mg tablet [facility] carvedilol 12.5 mg tablet carvedilol 12.5 mg tablet No carvedilol 12.5 mg tablet [facility] diltiazem CD 240 mg capsule,ext ended release 24 hr diltiazem CD 240 mg capsule,ext ended release 24 hr No diltiazem CD 240 mg capsule,ex tended release 24 hr [facility] Eliquis 2.5 mg tablet Eliquis 2.5 mg tablet No Eliquis 2.5 mg tablet [facility] hydrochloro thiazide 12.5 mg capsule hydrochloro thiazide 12.5 mg capsule No hydrochlor othiazide 12.5 mg capsule [facility] metoprolol tartrate 25 mg tablet metoprolol tartrate 25 mg tablet No metoprolol tartrate 25 mg tablet [facility] prednisone 20 mg tablet prednisone 20 mg tablet No prednisone 20 mg tablet [facility] sildenafil 100 mg tablet sildenafil 100 mg tablet No sildenafil 100 mg tablet [facility] sodium,pota ssium,mag sulfates 17.5 gram-3.13 gram-1.6 gram oral soln sodium,pota ssium,mag sulfates 17.5 gram-3.13 gram-1.6 gram oral soln No sodium,pot assium,mag sulfates 17.5 gram-3.13 gram-1.6 gram oral soln [facility] sulfamethox azole 800 mg-trimetho prim 160 mg tablet Take 1 tablet every 12 hours by oral route for 3 days. sulfamethox azole 800 mg-trimetho prim 160 mg tablet Take 1 tablet every 12 hours by oral route for 3 days. No sulfametho xazole 800 mg-trimeth oprim 160 mg tablet Take 1 tablet every 12 hours by oral route for 3 days. [facility] albuterol sulfate HFA 90 mcg/actuati on aerosol inhaler albuterol sulfate HFA 90 mcg/actuati on aerosol inhaler No albuterol sulfate HFA 90 mcg/actuat ion aerosol inhaler [facility] azithromyci n 250 mg tablet azithromyci n 250 mg tablet No azithromyc in 250 mg tablet [facility] carvedilol 12.5 mg tablet carvedilol 12.5 mg tablet No carvedilol 12.5 mg tablet [facility] Vital Signs Vital Name Observation Time Observation Value Comments Taran balderrama height 2023-03-25 08:40:00 72 [in_i] Commo n [facility] weight 2023-03-25 08:40:00 267 [lb_av] Comm on [facility] temperature 2023-03-25 08:40:00 97.8 [degF] Com [facility] bmi 2023-03-25 08:40:00 36.21 kg/m2 Comm on [facility] oximetry 2023-03-25 08:40:00 98 % Commo n [facility] respiratory rate 2023-03-25 08:40:00 16 /min [facility] blood pressure systolic 2023-03-25 08:40:00 126 mm[Hg] [facility] blood pressure diastolic 2023-03-25 08:40:00 70 mm[Hg] [facility] height 2022-11-01 09:40:00 72 [in_i] Commo n [facility] weight 2022-11-01 09:40:00 261 [lb_av] Comm on [facility] temperature 2022-11-01 09:40:00 97.6 [degF] Com [facility] bmi 2022-11-01 09:40:00 35.39 kg/m2 Comm on [facility] oximetry 2022-11-01 09:40:00 97 % Commo n [facility] respiratory rate 2022-11-01 09:40:00 16 /min Common [facility] blood pressure systolic 2022-11-01 09:40:00 130 mm[Hg] [facility] blood pressure diastolic 2022-11-01 09:40:00 74 mm[Hg] Common [facility] height 2022-08-02 08:40:00 72 [in_i] Commo n [facility] weight 2022-08-02 08:40:00 255 [lb_av] Comm on [facility] temperature 2022-08-02 08:40:00 97.2 [degF] Com [facility] bmi 2022-08-02 08:40:00 34.58 kg/m2 Comm on [facility] oximetry 2022-08-02 08:40:00 97 % Commo n [facility] respiratory rate 2022-08-02 08:40:00 17 /min [facility] blood pressure systolic 2022-08-02 08:40:00 132 mm[Hg] [facility] blood pressure diastolic 2022-08-02 08:40:00 74 mm[Hg] [facility] height 2022-08-02 09:20:00 72 [in_i] Commo n [facility] weight 2022-08-02 09:20:00 255 [lb_av] Comm on [facility] temperature 2022-08-02 09:20:00 97.2 [degF] Com [facility] bmi 2022-08-02 09:20:00 34.58 kg/m2 Comm on [facility] oximetry 2022-08-02 09:20:00 97 % Commo n [facility] respiratory rate 2022-08-02 09:20:00 17 /min [facility] blood pressure systolic 2022-08-02 09:20:00 132 mm[Hg] [facility] blood pressure diastolic 2022-08-02 09:20:00 74 mm[Hg] [facility] height 2022-06-30 11:30:00 72 [in_i] Commo n [facility] weight 2022-06-30 11:30:00 266.4 [lb_av] Co mmon [facility] temperature 2022-06-30 11:30:00 97.6 [degF] Com mon [facility] bmi 2022-06-30 11:30:00 36.13 kg/m2 Comm on [facility] oximetry 2022-06-30 11:30:00 97 % Commo n [facility] respiratory rate 2022-06-30 11:30:00 18 /min [facility] blood pressure systolic 2022-06-30 11:30:00 135 mm[Hg] Common [facility] blood pressure diastolic 2022-06-30 11:30:00 71 mm[Hg] Common [facility] Height 2022-03-30 00:00:00 72 [in_i] [facility] BMI (Body Mass Index) 2022-03-30 00:00:00 36.6 kg/m2 [facility] Body Weight 2022-03-30 00:00:00 270 [lb_av] Brea [facility] height 2022-03-02 15:40:00 72 [in_i] Commo n [facility] weight 2022-03-02 15:40:00 271.2 [lb_av] Co mmon [facility] temperature 2022-03-02 15:40:00 98.8 [degF] Com mon [facility] bmi 2022-03-02 15:40:00 36.78 kg/m2 Comm on [facility] oximetry 2022-03-02 15:40:00 96 % Commo n [facility] blood pressure systolic 2022-03-02 15:40:00 133 mm[Hg] Common [facility] blood pressure diastolic 2022-03-02 15:40:00 78 mm[Hg] [facility] height 2022-03-02 16:00:00 72 [in_i] Commo n [facility] weight 2022-03-02 16:00:00 271.2 [lb_av] Co mmon [facility] temperature 2022-03-02 16:00:00 98.8 [degF] Com mon [facility] bmi 2022-03-02 16:00:00 36.78 kg/m2 Comm on [facility] oximetry 2022-03-02 16:00:00 96 % Commo n [facility] respiratory rate 2022-03-02 16:00:00 18 /min [facility] blood pressure systolic 2022-03-02 16:00:00 133 mm[Hg] [facility] blood pressure diastolic 2022-03-02 16:00:00 78 mm[Hg] Common [facility] height 2021-12-09 11:20:00 72 [in_i] Commo n [facility] weight 2021-12-09 11:20:00 261 [lb_av] Comm on [facility] bmi 2021-12-09 11:20:00 35.39 kg/m2 Comm on [facility] Systolic blood pressure 2021-08-06 14:05:00 117 mm[Hg] [facility] Diastolic blood pressure 2021-08-06 14:05:00 70 mm[Hg] [facility] Heart rate 2021-08-06 13:56:00 93 /min [facility] Respiratory rate 2021-08-06 13:56:00 16 /min [facility] Body height 2021-08-06 13:56:00 182.9 cm [facility] Body weight 2021-08-06 13:56:00 119.659 kg [facility] BMI 2021-08-06 13:56:00 35.78 kg/m2 [facility] Oxygen saturation in Arterial blood by Pulse oximetry 2021-08-06 13:56:00 98 /min [facility] Systolic blood pressure 2021-08-06 14:05:00 117 mm[Hg] [facility] Diastolic blood pressure 2021-08-06 14:05:00 70 mm[Hg] [facility] Heart rate 2021-08-06 13:56:00 93 /min [facility] Respiratory rate 2021-08-06 13:56:00 16 /min [facility] Body height 2021-08-06 13:56:00 182.9 cm [facility] Body weight 2021-08-06 13:56:00 119.659 kg [facility] BMI 2021-08-06 13:56:00 35.78 kg/m2 [facility] Oxygen saturation in Arterial blood by Pulse oximetry 2021-08-06 13:56:00 98 /min [facility] height 2021-03-03 16:40:00 72 [in_i] Commo n [facility] weight 2021-03-03 16:40:00 261 [lb_av] Comm on [facility] temperature 2021-03-03 16:40:00 97 [degF] Comm on [facility] bmi 2021-03-03 16:40:00 35.39 kg/m2 Comm on [facility] oximetry 2021-03-03 16:40:00 97 % Commo n [facility] respiratory rate 2021-03-03 16:40:00 23 /min Common [facility] blood pressure systolic 2021-03-03 16:40:00 128 mm[Hg] [facility] blood pressure diastolic 2021-03-03 16:40:00 70 mm[Hg] [facility] Procedures Procedure Date / Time Performed Performing Clinicia n Source PVR 2022-06-30 00:00:00 [facility] MEDICAL RELEASE/CLEARANCE FORMS 2022-06-07 06:01:00 Doctor Unassigned, [place] [facility] NM, bone scan, whole body 2022-05-10 00:00:00 [facility] y MRI, prostate, w/wo contrast 2022-05-10 00:00:00 [facility] y CT, abdomen + pelvis, w/o contrast 2022-05-04 00:00:00 [facility] Urolog y MEDICAL RELEASE/CLEARANCE FORMS 2022-04-13 06:01:00 Doctor Unassigned, [place] [facility] MEDICAL RELEASE/CLEARANCE FORMS 2022-03-15 06:01:00 Doctor Unassigned, [place] [facility] EXTERNAL PROVIDER - [facility] CARDIOLOGY 2021-11-09 05:01:00 Doctor Unassigned, [place] [facility] Plan of Care Planned Activity Planned Date Details Comments Source Diagnostic Test Pending 2022-03-30 00:00:00 biopsy, prostate [code = biopsy, prostate] [facility] Encounters Start Date/Time End Date/Time Encounter Type Admission Type Attending [facility] Facility Care Department Encounter ID Source 2023-08-16 10:05:00 Outpatient LisaCarrie [facility] [id number] [facility] 2023-08-03 07:32:00 Outpatient Lisa Carrie [facility] [id number] [facility] 2023-08-02 10:37:00 Outpatient Gonzalez Carrie [facility] [id number] [facility] 2023-07-06 08:10:00 Outpatient GonzalezHeydii [facility] [id number] [facility] 2023-03-23 10:16:00 Outpatient Gonzalez, Carrie [facility] [id number] [facility] 2023-01-26 07:45:00 Outpatient GonzalezAnabel mayfieldhani [facility] [id number] [facility] 2022-10-29 12:44:00 Outpatient Carrie Gonzalez [facility]C [facility] [id number] [facility] 2022-10-28 10:09:00 Outpatient Carrie Gonzalez STLMLC [facility] [id number] [facility] 2022-08-02 07:46:00 Outpatient Carrie Gonzalez STLMLC [facility] [id number] [facility] 2022-06-22 11:32:01 Outpatient Carrie Gonzalez STLMLC [facility] [id number] [facility] 2022-05-25 09:02:01 Outpatient Carrie Gonzalez STLMLC ST[facility] [id number] [facility] 2022-03-01 16:26:00 Outpatient Whittington, Na STLMLC STL[facility] [id number] [facility] 2022-02-09 08:19:02 Outpatient Whitting[place], Na STLMLC ST[facility] [id number] [facility] 2021-04-29 13:43:45 Outpatient Whitting[place], Na STLMLC ST[facility] [id number] [facility] 2021-04-29 13:24:16 Outpatient [place]itting[place], Na STLMLC ST[facility] [id number] [facility] 2021-04-29 13:23:13 Outpatient Whittington, Na STLMLC ST[facility] [id number] [facility] 2021-04-29 13:22:25 Outpatient Whittington, Na STLMLC STL[facility] [id number] [facility] 2021-04-29 13:07:29 Outpatient Whittington, Na STLMLC STLMLC [id number] [facility] 2023-08-15 00:00:00 2023-08-15 00:00:00 (TEL) STLMLC STLMLC [id number] [facility] 2023-04-08 00:00:00 2023-04-08 00:00:00 (TEL) STLMLC STLMLC [id number] [facility] 2023-03-25 00:00:00 2023-03-25 00:00:00 OFFICE VISIT ESTAB PT LEVEL 4 STLMLC STLMLC [id number] [facility] 2022-11-01 00:00:00 2022-11-01 00:00:00 OFFICE VISIT ESTAB PT LEVEL 4 STLMLC STLMLC [id number] [facility] 2022-10-19 00:00:00 2022-10-19 00:00:00 (TEL) STLMLC STLMLC [id number] [facility] 2022-08-07 00:00:00 2022-08-07 00:00:00 [place] Con[id number] [facility] 2022-08-07 00:00:00 2022-08-07 00:00:00 Outpatient Conroy_R DMG DM[place] [id number] [facility] 2022-08-02 00:00:00 2022-08-02 00:00:00 OFFICE VISIT ESTAB PT LEVEL 4 STLMLC STLMLC [id number] [facility] 2022-08-02 00:00:00 2022-08-02 00:00:00 SUB ANNUAL [facility] VISIT STLMLC STLMLC [id number] [facility] 2022-06-30 00:00:00 2022-06-30 00:00:00 OFFICE VISIT NEW PT LEVEL 4 STLMLC STLMLC [id number] [facility] 2022-06-24 00:00:00 2022-06-24 00:00:00 OFFICE VISIT ESTAB PT LEVEL 4 STLMLC STLMLC [id number] [facility] 2022-06-21 00:00:00 2022-06-21 00:00:00 (TEL) STLMLC [facility]C [id number] [facility] 2022-06-07 00:00:00 2022-06-07 00:00:00 Telephone Judie Maddox [facility] 1.2.840.114 350.1.13.10 4.2.7.2.686 [id number] [facility] 2022-06-07 00:00:00 2022-06-07 00:00:00 Orders Only Doctor Unassigned, [place] [facility] 1.2.840.114 350.1.13.10 4.2.7.2.686 [id number] [facility] 2022-06-03 00:00:00 2022-06-03 00:00:00 Telephone Judie Maddox [facility] 1.2.840.114 350.1.13.10 4.2.7.2.686 [id number] [facility] 2022-06-01 00:00:00 2022-06-01 00:00:00 Outpatient Conroy_R [facility] [id number] [facility] 2022-05-26 00:00:00 2022-05-26 00:00:00 Telephone Judie Maddox [facility] 1.2.840.114 350.1.13.10 4.2.7.2.686 [id number] [facility] 2022-05-10 00:00:00 2022-05-10 00:00:00 Martin Hodges MD: [address] [address], [place] [address] , Ph. [id number] [facility] 2022-05-06 00:00:00 2022-05-06 00:00:00 Outpatient Carroll_R [facility] [id number] [facility] 2022-05-06 00:00:00 2022-05-06 00:00:00 Outpatient Goldfarb_R [facility] [id number] [facility] 2022-05-06 00:00:00 2022-05-06 00:00:00 Outpatient Goldfarb_R [facility] [id number] [facility] 2022-05-06 00:00:00 2022-05-06 00:00:00 Todd Hodges MD: [address], [place] [address] , Ph. [facility] [place] [address] [id number] [facility] 2022-05-04 00:00:00 2022-05-04 00:00:00 Outpatient Goldfarb_R [facility] [id number] [facility] 2022-05-04 00:00:00 2022-05-04 00:00:00 Outpatient Goldfarb_R [facility] [id number] [facility] 2022-04-30 00:00:00 2022-04-30 00:00:00 Todd Hodges MD: [address] [facility], [place] [address] , Ph. [facility] [id number] [facility] 2022-04-27 00:00:00 2022-04-27 00:00:00 (TEL) STLMLC STLMLC [id number] [facility] 2022-04-16 00:00:00 2022-04-16 00:00:00 Telephone [facility] 1.2.840.114 350.1.13.10 4.2.7.2.686 [id number] [facility] 2022-04-13 00:00:00 2022-04-13 00:00:00 Orders Only Doctor Unassigned, [place] [facility] 1.2.840.114 350.1.13.10 4.2.7.2.686 [id number] [facility] 2022-04-03 00:00:00 2022-04-03 00:00:00 Outpatient Goldfarb_R [facility] [id number] [facility] 2022-03-31 00:00:00 2022-03-31 00:00:00 Outpatient Goldfarb_R [facility] [id number] [facility] 2022-03-30 00:00:00 2022-03-30 00:00:00 Outpatient Goldfarb_R [facility] [id number] [facility] 2022-03-30 00:00:00 2022-03-30 00:00:00 Todd Hodges MD: [address], [place] [address] , Ph. [facility] 1440 [id number] [facility] 2022-03-25 00:00:00 2022-03-25 00:00:00 Outpatient Goldfarb_R [facility] [id number] [facility] 2022-03-25 00:00:00 2022-03-25 00:00:00 Todd Hodges MD: [address], [place] [address] , Ph. [facility] 1440 [id number] [facility] 2022-03-17 15:20:00 2022-03-17 15:20:00 Outpatient JUDIE NUÑEZ [facility] [id number] [facility] 2022-03-15 00:00:00 2022-03-15 00:00:00 Outpatient Goldfarb_R [facility] [id number] [facility] 2022-03-15 00:00:00 2022-03-15 00:00:00 Orders Only Doctor Unassigned, [place] [facility] 1..840.114 350.1.13.10 4.2.7.2.686 [id number] [facility] 2022-03-13 00:00:00 2022-03-13 00:00:00 Judie Ngo [facility] 1..840.114 350.1.13.10 4.2.7.2.686 [id number] [facility] 2022-03-12 00:00:00 2022-03-12 00:00:00 Out[place] Goldfar[place] [id number] [facility] 2022-03-04 00:00:00 2022-03-04 00:00:00 (TEL) STLMLC STLMLC [id number] [facility] 2022-03-02 00:00:00 2022-03-02 00:00:00 OFFICE VISIT EST PT LEVEL 3 STLMLC STLMLC [id number] [facility] 2022-03-02 00:00:00 2022-03-02 00:00:00 SUB ANNUAL [facility] VISIT STLMLC STLMLC [id number] [facility] 2022-02-12 00:00:00 2022-02-12 00:00:00 (TEL) STLMLC STLMLC [id number] [facility] 2021-12-09 00:00:00 2021-12-09 00:00:00 OL DIG E/M SVC 21+ MIN STLMLC STLMLC [id number] [facility] 2021-11-12 00:00:00 2021-11-12 00:00:00 Outpatient BWilliams DMG DMG [id number] [facility] 2021-11-12 00:00:00 2021-11-12 00:00:00 Outpatient BWilliams DMG DMG [id number] [facility] 2021-11-09 00:00:00 2021-11-09 00:00:00 Refill Judie Maddox [facility] 1.2.840.114 350.1.13.10 4.2.7.2.686 [id number] [facility] 2021-11-09 00:00:00 2021-11-09 00:00:00 Orders Only Doctor Unassigned, [place] [facility] 1.2840.114 350.1.13.10 4.2.7.2.686 [id number] [facility] 2021-10-19 00:00:00 2021-10-19 00:00:00 (TEL) [facility] [id number] [facility] 2021-10-16 04:05:00 2021-10-16 04:05:00 Outpatient DMG [facility] [id number] [facility] 2021-10-13 00:00:00 2021-10-13 00:00:00 Orders Only Doctor Unassigned, [place] [facility] 1.2840.114 350.1.13.10 4.2.7.2.686 [id number] [facility] 2021-10-06 00:00:00 2021-10-06 00:00:00 [facility]..840.114 350.1.13.10 4.2.7.2.686 [id number] [facility] 2021-09-22 00:00:00 2021-09-22 00:00:00 [facility] 1.2.840.114 350.1.13.10 4.2.7.2.686 [id number] [facility] 2021-09-02 00:00:00 2021-09-02 00:00:00 [facility] 1.2840.114 350.1.13.10 4.2.7.2.686 [id number] [facility] 2021-09-01 09:20:00 2021-09-01 09:20:00 Outpatient R JUDIE MADDOX [facility] [id number] [facility] 2021-08-27 00:00:00 2021-08-27 00:00:00 Telephone [facility] 1.2840.114 350.1.13.10 4.2.7.2.686 [id number] [facility] 2021-08-26 00:00:00 2021-08-26 00:00:00 Orders Only Doctor Unassigned, [place] [facility] 1.840.114 350.1.13.10 4.2.7.2.686 [id number] [facility] 2021-08-06 09:00:00 2021-08-06 09:39:49 [facility] [id number] [facility] 2021-08-06 09:00:00 2021-08-06 09:39:49 Office Visit [facility] 1..840.114 350.1.13.10 4.2.7.2.686 [id number] [facility] 2021-08-06 09:00:00 2021-08-06 09:39:49 [facility] [id number] [facility] 2021-08-06 09:00:00 2021-08-06 09:39:49 [facility] 1.2840.114 350.1.13.10 4.2.7.2.686 [id number] [facility] 2021-08-06 00:00:00 2021-08-06 00:00:00 Telephone Judie Maddox [facility] 1.2.840.114 350.1.13.10 4.2.7.2.686 [id number] [facility] 2021-08-04 00:00:00 2021-08-04 00:00:00 Refill Judie Maddox [facility] 1.2.840.114 350.1.13.10 4.2.7.2.686 [id number] [facility] 2021-08-04 00:00:00 2021-08-04 00:00:00 Telephone Judie Maddox [facility] 1.2.840.114 350.1.13.10 4.2.7.2.686 [id number] [facility] 2021-07-27 00:00:00 2021-07-27 00:00:00 Telephone Judie Maddox [facility] 1.2.840.114 350.1.13.10 4.2.7.2.686 [id number] [facility] 2021-07-27 00:00:00 2021-07-27 00:00:00 Telephone Judie Maddox [facility] 1.2.840.114 350.1.13.10 4.2.7.2.686 [id number] [facility] 2021-07-15 00:00:00 2021-07-15 00:00:00 Refill Judie Maddox [facility] 1.2.840.114 350.1.13.10 4.2.7.2.686 [id number] [facility] 2021-06-24 00:00:00 2021-06-24 00:00:00 Telephone Judie Maddox [facility] 1.2.840.114 350.1.13.10 4.2.7.2.686 [id number] [facility] 2021-05-28 00:00:00 2021-05-28 00:00:00 Telephone [facility] 1.2.840.114 350.1.13.10 4.2.7.2.686 [id number] [facility] 2021-03-03 00:00:00 2021-03-03 00:00:00 OFFICE VISIT EST PT LEVEL 3 STLMLC STLMLC [id number] [facility] 2021-02-06 00:00:00 2021-02-06 00:00:00 [facility] 1.2.840.114 350.1.13.10 4.2.7.2.686 [id number] [facility] 2021-02-03 00:00:00 2021-02-03 00:00:00 [facility] 1.2.840.114 350.1.13.10 4.2.7.2.686 [id number] [facility] 2020-12-18 00:00:00 2020-12-18 00:00:00 Orders Only Doctor Unassigned, [place] [facility] 1.2.840.114 350.1.13.10 4.2.7.2.686 [id number] [facility] 2020-12-01 08:52:10 2020-12-01 09:32:04 [facility] 1.2.840.114 350.1.13.10 4.2.7.2.686 [id number] [facility] 2020-12-01 08:40:00 2020-12-01 08:40:00 Outpatient R JUDIE MADDOX [facility] [id number] [facility] 2020-12-01 00:00:00 2020-12-01 00:00:00 Orders Only Doctor Unassigned, [place] [facility] 1.2.840.114 [id number] [id number] [id number] [facility] 2020-12-01 00:00:00 2020-12-01 00:00:00 Orders Only Doctor Unassigned, [place] [facility] [id number] [id number] [id number] [id number] [facility] 2020-11-28 00:00:00 2020-11-28 00:00:00 Outpatient [facility] ST[facility]C [id number] [facility] 2020-11-28 00:00:00 2020-11-28 00:00:00 Outpatient [facility]LMLC STLMLC [id number] [facility] 2020-11-24 00:00:00 2020-11-24 00:00:00 [place] [facility] 1.2.840.114 [id number] [id number] [facility] 2020-11-24 00:00:00 2020-11-24 00:00:00 Outpatient STLMLC STLMLC [id number] [facility] 2020-10-09 00:00:00 2020-10-09 00:00:00 Outpatient STLMLC STLMLC [id number] [facility] 2020-09-16 00:00:00 2020-09-16 00:00:00 Outpatient STLMLC STLMLC [id number] [facility] 2020-09-08 00:00:00 2020-09-08 00:00:00 Outpatient STLMLC STLMLC [id number] [facility] 2020-08-26 00:00:00 2020-08-26 00:00:00 Outpatient STLMLC STLMLC [id number] [facility] 2020-08-05 10:40:00 2020-08-05 10:40:00 Outpatient R [facility] [id number] [facility] 2020-08-04 06:02:00 2020-08-04 06:02:00 Outpatient [facility] [id number] [facility] [place] 2020-07-31 00:00:00 2020-07-31 00:00:00 Refill Tan [facility] 1.2.840.114 350.1.13.10 4.2.7.2.686 [id number] [facility] 2020-07-28 08:00:00 2020-07-28 08:00:00 Outpatient [facility] [id number] [facility] 2020-07-03 00:00:00 2020-07-03 00:00:00 [facility] 1.2.840.114 350.1.13.10 4.2.7.2.686 [id number] [facility] 2020-06-16 00:00:00 2020-06-16 00:00:00 [facility] 1.2.840.114 350.1.13.10 4.2.7.2.686 [id number] [facility] 2020-03-03 00:00:00 2020-03-03 00:00:00 [facility] 1..114 350.1.13.10 4.2.7.2.686 [id number] [facility] 2020-01-22 00:00:00 2020-01-22 00:00:00 [facility] 1.114 350.1.13.10 4.2.7.2.686 [id number] [facility] 2019-12-31 00:00:00 2019-12-31 00:00:00 Orders Only Doctor Unassigned, [place] [facility] 1..114 350.1.13.10 4.2.7.2.686 [id number] [facility] 2019-12-18 09:00:00 2019-12-18 09:00:00 Outpatient R ANDIE CERVANTES [facility] [id number] [facility] 2019-10-15 13:43:25 2019-10-15 14:03:25 Laboratory Only Lab, Adc Fam Pob Shanel Crane [facility] Office Building One 1.114 350.1.13.10 4.2.7.2.686 [id number] [facility] 2019-10-15 13:40:00 2019-10-15 13:40:00 Outpatient R [facility] [id number] [facility] 2019-10-15 00:00:00 2019-10-15 00:00:00 Letter (Out) Doctor Unassigned, [place] [facility] 1..114 350.1.13.10 4.2.7.2.686 [id number] [facility] 2019-10-09 00:00:00 2019-10-09 00:00:00 Abdon Maddox [facility] Building 1.114 350.1.13.10 4.2.7.2.686 [id number] [facility] 2019-08-20 10:20:00 2019-08-20 10:20:00 Outpatient R JUDIE MADDOX [facility] [id number] [facility] 2019-08-20 08:03:33 2019-08-20 08:23:33 [facility] 1.2.840.114 350.1.13.10 4.2.7.2.686 [id number] [facility] 2019-06-04 00:00:00 2019-06-04 00:00:00 [facility] 1.2.840.114 350.1.13.10 4.2.7.2.686 [id number] [facility] 2019-06-01 00:00:00 2019-06-01 00:00:00 [facility] 1.2.840.114 350.1.13.10 4.2.7.2.686 [id number] [facility] 2019-05-31 00:00:00 2019-05-31 00:00:00 Letter (Out[facility] 1.2.840.114 350.1.13.10 4.2.7.2.686 [id number] [facility] 2019-05-23 14:59:55 2019-05-23 15:29:55 Nurse Visit Visit, Adc Nurse Tan [facility] Building 1.2.840.114 350.1.13.10 4.2.7.2.686 [id number] [facility] 2019-05-23 15:00:00 2019-05-23 15:00:00 [facility] [id number] 2019-05-21 10:04:05 2019-05-21 10:47:04 [facility] 1.2.840.114 350.1.13.10 4.2.7.2.686 [id number] [facility] 2019-05-01 12:17:28 2019-05-02 14:18:00 Emergency D[place]ab[place], Gurmeet Fabian [facility] 1.2.840.114 350.1.13.10 4.2.7.2.686 [id number] [facility] 2019-04-16 00:00:00 2019-04-16 00:00:00 Telephone Esha Echevarria [facility] 1.2.840.114 350.1.13.10 4.2.7.2.686 [id number] [facility] 2019-04-09 14:58:19 2019-04-09 23:59:00 Outpatient ESHA ECHEVARRIA [facility] [id number] [facility] Results Test Description Test Time Test Comments Results Result Co mments Source HEMOGLOBIN [id number] 00:00:00* Test Item Value Reference Range Interpretation Comme [facility] HEMOGLOBIN A1c (test code = 4548-4) 5.8 % See_Comment H [Automated messa ge] The system which generated this result transmitted reference range: 4.2-5.6 %. The reference range was not used to interpret this result as normal/abnormal. LIPID PANEL WITH REFLEX DIRECT [id number] 00:00:00* Test Item Value Reference Range Interpretation Comme nts CALC LDL CHOL (test code = 54727-1) 155 MG/DL See_Comment H [Automated BillShrinka ge] The system which generated this result transmitted reference range: <100 MG/DL. The reference range was not used to interpret this result as normal/abnormal. CHOLESTEROL (test code = 2093-3) 233 MG/DL See_Comment H [Automated messa ge] The system which generated this result transmitted reference range: <200 MG/DL. The reference range was not used to interpret this result as normal/abnormal. HDL CHOLESTEROL (test code = 2085-9) 44 MG/DL See_Comment [Automated messa ge] The system which generated this result transmitted reference range: >39 MG/DL. The reference range was not used to interpret this result as normal/abnormal. RISK RATIO LDL/HDL (test code = 50721-7) 3.52 RATIO See_Comment [Automated message] The system which generated this result transmitted reference range: <3.55 RATIO. The reference range was not used to interpret this result as normal/abnormal. TRIGLYCERIDES (test code = 2571-8) 203 MG/DL See_Comment H [Automated messa ge] The system which generated this result transmitted reference range: <150 MG/DL. The reference range was not used to interpret this result as normal/abnormal. COMPREHENSIVE METABOLIC [id number] 00:00:00* Test Item Value Reference Range Interpretation Comme nts ALBUMIN (test code = 1751-7) 4.6 G/DL See_Comment [Automated messa ge] The system which generated this result transmitted reference range: 3.5-5.2 G/DL. The reference range was not used to interpret this result as normal/abnormal. ALKALINE PHOSPHATASE (test code = 6768-6) 104 U/L See_Comment [Automated message] The system which generated this result transmitted reference range: 40-125 U/L. The reference range was not used to interpret this result as normal/abnormal. BILIRUBIN, TOTAL (test code = 1975-2) 0.6 MG/DL See_Comment [Automated message] The system which generated this result transmitted reference range: <=1.2 MG/DL. The reference range was not used to interpret this result as normal/abnormal. BUN (test code = 3094-0) 11 MG/DL See_Comment [Automated messa ge] The system which generated this result transmitted reference range: 8-23 MG/DL. The reference range was not used to interpret this result as normal/abnormal. CALCIUM (test code = 33116-9) 9.9 MG/DL See_Comment [Automated BillShrinka ge] The system which generated this result transmitted reference range: 8.5-10.5 MG/DL. The reference range was not used to interpret this result as normal/abnormal. CALC A/G RATIO (test code = 1759-0) 2.0 RATIO See_Comment [Automated messa ge] The system which generated this result transmitted reference range: 1.0-2.6 RATIO. The reference range was not used to interpret this result as normal/abnormal. CALC BUN/CREAT (test code = 3097-3) 9 RATIO See_Comment [Automated messa ge] The system which generated this result transmitted reference range: 6-28 RATIO. The reference range was not used to interpret this result as normal/abnormal. CALC GLOBULIN (test code = 43135-5) 2.3 G/DL See_Comment [Automated messa ge] The system which generated this result transmitted reference range: 1.9-3.7 G/DL. The reference range was not used to interpret this result as normal/abnormal. CARBON DIOXIDE (test code = 1963-8) 28 MEQ/L See_Comment [Automated messa ge] The system which generated this result transmitted reference range: 19-31 MEQ/L. The reference range was not used to interpret this result as normal/abnormal. CHLORIDE (test code = 2075-0) 101 MEQ/L See_Comment [Automated messa ge] The system which generated this result transmitted reference range: 95-107 MEQ/L. The reference range was not used to interpret this result as normal/abnormal. CREATININE (test code = 2160-0) 1.17 MG/DL See_Comment [Automated messa ge] The system which generated this result transmitted reference range: 0.80-1.40 MG/DL. The reference range was not used to interpret this result as normal/abnormal. eGFR (2020 CKD-EPI) (test code = 07403-8) 68 ML/MIN/1.73 See_Comment [Automated messa ge] The system which generated this result transmitted reference range: >60 ML/MIN/1.73. The reference range was not used to interpret this result as normal/abnormal. GLUCOSE (test code = 1558-6) 88 MG/DL See_Comment [Automated messa ge] The system which generated this result transmitted reference range: 70-99 MG/DL. The reference range was not used to interpret this result as normal/abnormal. POTASSIUM (test code = 2823-3) 4.8 MEQ/L See_Comment [Automated messa ge] The system which generated this result transmitted reference range: 3.5-5.4 MEQ/L. The reference range was not used to interpret this result as normal/abnormal. PROTEIN, TOTAL (test code = 2885-2) 6.9 G/DL See_Comment [Automated messa ge] The system which generated this result transmitted reference range: 6.1-8.3 G/DL. The reference range was not used to interpret this result as normal/abnormal. AST (test code = 1920-8) 18 U/L See_Comment [Automated messa ge] The system which generated this result transmitted reference range: 9-50 U/L. The reference range was not used to interpret this result as normal/abnormal. ALT (test code = 1742-6) 20 U/L See_Comment [Automated messa ge] The system which generated this result transmitted reference range: 5-50 U/L. The reference range was not used to interpret this result as normal/abnormal. SODIUM (test code = 2951-2) 140 MEQ/L See_Comment [Automated messa ge] The system which generated this result transmitted reference range: 133-146 MEQ/L. The reference range was not used to interpret this result as normal/abnormal. Prostate Pathology biopsy [id number] 00:00:00* Test Item Value Reference Range Interpretation Comme nts prostate core biopsy 12 (francesca t code = prostate core biopsy 12) malignant A [facility]rologyPro[facility] biopsy [id number] 00:00:00* Test Item Value Reference Range Interpretation Comme nts prostate core biopsy 12 (francesca t code = prostate core biopsy 12) malignant A [facility] UrologyPSA, serum or [id number] 00:00:00* Test Item Value Reference Range Interpretation Comme nts Prostate specific Ag [Mass/v olume] in Serum or Plasma by Detection limit <= 0.01 ng/mL (test code = 18949-1) 4.23 NG/mL <4.00 H [facility] UrologyUrinalysis macro (dipstick) panel - [id number] 09:57:00* Test Item Value Reference Range Interpretation Comme nts leukocytes (test code = leukocytes) negative neg urobilinogen (test code = urobilinogen) 0.2 E.U./dL sm amt (.5-1mg/dL) protein (test code = protein) negative See_Comment [Automated BillShrinka Cuil] The system which generated this result transmitted reference range: <=150 mg/d. The reference range was not used to interpret this result as normal/abnormal. pH (test code = pH) 5.5 4.5-8 blood (test code = blood) negative See_Comment [Automated BillShrinka Cuil] The system which generated this result transmitted reference range: <=3 RBC. The reference range was not used to interpret this result as normal/abnormal. specific gravity (test code = specific gravity) 1.025 1.005-1.025 ketone (test code = ketone) 15 mg/dL none bilirubin (test code = bilirubin) small neg glucose (test code = glucose) negative See_Comment [Automated BillShrinka Cuil] The system which generated this result transmitted reference range: <=130 mg/d. The reference range was not used to interpret this result as normal/abnormal. color (test code = color) yellow yellow clarity (test code = clarity) clear clear or cloudy nitrite (test code = nitrite) negative neg [facility]
[2023-08-27] MEDS ORDERED: METOPROLOL TARTRATE 5 MG/5 ML INJ IV ONE (10:27)
[2023-08-27] MEDS ORDERED: NITROGLYCERIN 0.4 MG/TAB SL ONE (10:27)
--- NOTE | 2023-08-27 10:49 | RAD REPORT ---
EXAM DESCRIPTION: RAD - Chest Single View - 08/27/2023 10:31 am CLINICAL HISTORY: CHEST PAIN COMPARISON: Chest Single View dated 07/22/2021 FINDINGS: Lines: None. Lungs: Mild basilar opacities. Pleural: No significant pleural effusions or pneumothorax. Cardiac: The heart size is within normal limits. Mediastinum: Within normal limits. Bones: No acute fractures. Other: None IMPRESSION: Nonspecific linear opacities in lung bases could reflect atelectasis, pneumonitis, or mi ld pneumonia. .
[2023-08-27 10:51] LABS: Absolute Basophils 0.1 K/uL (0-0.5); Absolute Eosinophils 0.2 K/uL (0-0.5); Absolute Lymphocytes (CBC) 3.2 K/uL (0.7-4.9); Absolute Monocytes 0.9 K/uL (0.1-1.3); Absolute Neutrophil 6.4 K/uL (1.8-8.0); Basophils % 0.6 % (0-1.3); Eosinophils % 1.4 % (0-4.4); Hematocrit 49.7 % (39.6-49.0); Hemoglobin 16.5 g/dL (13.6-17.9); Lymphocytes % 29.6 % (15.3-44.8); MCH 29.5 pg (27.0-35.0); MCHC 33.2 g/dL (32.0-36.0); MCV 88.8 fL (80-100); MPV 9.9 fL (7.6-11.3); Monocytes % 8.7 % (3.3-12.3); Neutrophils % 59.7 % (41.7-73.7); Nucleated Red Blood Cells % 0.4 % (0-0); Platelets 211 thou/uL (152-406); Red Cell Distribution Width 14.3 % (12.1-15.2)
[2023-08-27 11:04] LABS: Anion Gap 12.7 mEq/L (5.0-15.0); Potassium 3.7 mEq/L (3.5-5.1); Troponin High Sensitivity 4.9 pg/mL (<58.9)
--- NOTE | 2023-08-27 11:43 | EDPHYS ---
Physician Documentation [facility] Name: Ramiro Cardoza Age: 68 yrs Sex: Male : 1955 Arrival Date: 08/27/2023 Time: 10:05 Bed 7 Private MD: ED Physician Jose A Cerrato HPI: 08/26 10:31 This 68 yrs old Male presents to ER via EMS with complaints of Chest pain . jr8 10:31 The patient or guardian reports chest pain that is located primarily in the substernal jr8 area. Onset: acutely, today. The pain does not radiate. Associated signs and symptoms: Pertinent positives: nausea. The chest pain is described as a pressure. Duration: The patient or guardian reports a single episode, that is still ongoing. Modifying factors: The symptoms are alleviated by NTG, X1. the symptoms are aggravated by nothing. EMS care prior to arrival includes: aspirin, nitroglycerin, x 1, with partial relief of the chest pain. The patient has not experienced similar symptoms in the past. The patient has not recently seen a physician. Historical: - Allergies: 10:17 Codeine; nj1 - Home Meds: 10:17 Diltiazem Oral daily [Active]; Eliquis 2.5 mg Oral tab 1 tab 2 times per day [Active]; nj1 Metoprolol Tartrate Oral every 12 hours [Active]; rosuvastatin oral daily [Active]; - PMHx: 10:17 Atrial Fib; chronic back pain; Hypertension; Hypercholesterolemia; nj1 - Immunization history:: Client reports receiving the 2nd dose of the Covid vaccine. - Infectious Disease History:: Denies. - Social history:: Smoking status: Patient denies any tobacco usage or history of. ROS: 10:31 Eyes: Negative for injury, pain, redness, and discharge, ENT: Negative for injury, jr8 pain, and discharge, Neck: Negative for injury, pain, and swelling, Respiratory: Negative for shortness of breath, cough, wheezing, and pleuritic chest pain, Abdomen/GI: Negative for abdominal pain, nausea, vomiting, diarrhea, and constipation, Back: Negative for injury and pain, MS/Extremity: Negative for injury and deformity, Skin: Negative for injury, rash, and discoloration, Neuro: Negative for headache, weakness, numbness, tingling, and seizure, 10:31 Cardiovascular: Positive for chest pain, Negative for edema, orthopnea, palpitations, paroxysmal nocturnal dyspnea, Exam: 10:31 Eyes: Pupils equal round and reactive to light, extra-ocular motions intact. Lids and jr8 lashes normal. Conjunctiva and sclera are non-icteric and not injected. Cornea within normal limits. Periorbital areas with no swelling, redness, or edema. Neck: Trachea midline, no thyromegaly or masses palpated, and no cervical lymphadenopathy. Supple, full range of motion without nuchal rigidity, or vertebral point tenderness. No Meningismus. Chest/axilla: Normal chest wall appearance and motion. Mild tenderness to sternal region with no deformity. No lesions are appreciated. Cardiovascular: Regular rate and rhythm with a normal S1 and S2. No gallops, murmurs, or rubs. Normal PMI, no JVD. No pulse deficits. Respiratory: Lungs have equal breath sounds bilaterally, clear to auscultation and percussion. No rales, rhonchi or wheezes noted. No increased work of breathing, no retractions or nasal flaring. Abdomen/GI: Soft, non-tender, with normal bowel sounds. No distension or tympany. No guarding or rebound. No evidence of tenderness throughout. Back: No spinal tenderness. No costovertebral tenderness. Full range of motion. Skin: Warm, dry with normal turgor. Normal color with no rashes, no lesions, and no evidence of cellulitis. MS/ Extremity: Pulses equal, no cyanosis. Neurovascular intact. Full, normal range of motion. Neuro: Awake and alert, GCS 15, oriented to person, place, time, and situation. Motor strength 5/5 in all extremities. Sensory grossly intact. 10:31 Constitutional: The patient appears alert, awake, in obvious pain, 10:31 ECG was reviewed by the Attending Physician. Vital Signs: 10:04 BP 163 / 119; Pulse 115; Resp 22; Temp 96.7(A); Pulse Ox 98% on R/A; Weight 127.01 kg; nj1 Height 6 ft. 0 in. ; Pain 7/10; 10:30 BP 169 / 100; Pain 7/10; nj1 10:35 BP 160 / 83; Pain 5/10; nj1 10:40 BP 147 / 107; Pulse 126; Resp 25; Pulse Ox 95% on R/A; Pain 5/10; nj1 10:45 BP 118 / 84; Pulse 111; Resp 22; Pulse Ox 97% on R/A; nj1 10:56 BP 136 / 104; Pulse 96; Resp 26; Pulse Ox 98% on R/A; nj1 11:39 BP 142 / 90; Pulse 103; Resp 18; Pulse Ox 98% on R/A; ld1 12:10 BP 127 / 87; Pulse 105; Resp 20; Pulse Ox 94% on R/A; nj1 12:17 BP 127 / 87; Pulse 105; Resp 18; Pulse Ox 95% on R/A; ld1 14:17 BP 134 / 96; Pulse 104; Resp 12; Temp 97.3(TE); Pulse Ox 97% ; nj1 10:04 Body Mass Index 37.98 (127.01 kg, 182.88 cm) nj1 10:04 Pain Scale: Adult nj1 10:30 Pain Scale: Adult nj1 10:35 Pain Scale: Adult nj1 10:40 Pain Scale: Adult nj1 MDM: 10:09 Patient medically screened. jr8 11:40 Differential diagnosis: abnormal EKG, acute myocardial infarction, acute pericarditis, jr8 chest wall pain, esophagitis, pneumonia, pneumothorax, pulmonary embolus, stable angina, thoracic aortic disection, unstable angina. The patient was not given aspirin in the Emergency Department. Administered by EMS. Data reviewed: vital signs, nurses notes, lab test result(s), EKG, radiologic studies, plain films, and as a result, I will admit patient. Consideration of Admission/Observation Patient was admitted/placed on observation. Management of patient was discussed with the following: Hospitalist: Dr. Cisneros . I considered the following discharge prescriptions or medication management in the emergency department Medications were administered in the Emergency Department. See MAR. Counseling: I had a detailed discussion with the patient and/or guardian regarding the historical points, exam findings, and any diagnostic results supporting the discharge/admit diagnosis, lab results, radiology results, the need for further work-up and treatment in the hospital. 08/26 10:18 Order name: Basic Metabolic Panel; Complete Time: 11:17 1 08/26 10:18 Order name: CBC with Diff; Complete Time: 11:02 [facility] 08/26 10:18 Order name: Troponin HS; Complete Time: 11:17 [facility] 08/26 13:40 Order name: Basic Metabolic Panel [facility] 08/26 13:40 Order name: CBC with Automated Diff [facility] 08/26 13:40 Order name: Lipid Profile [facility] 08/26 13:40 Order name: Lipid Profile [facility] 08/26 13:40 Order name: Troponin High Sensitivity [facility] 08/26 13:40 Order name: Troponin High Sensitivity [facility] 08/26 13:40 Order name: Troponin High Sensitivity [facility] 08/26 10:18 Order name: XRAY Chest (1 view); Complete Time: 11:02 [facility] 08/26 13:40 Order name: Echo with Doppler [facility] 08/26 13:40 Order name: CONS Physician Consult [facility] 08/26 10:18 Order name: Cardiac monitoring; Complete Time: 10:18 [facility] 08/26 10:18 Order name: EKG - Nurse/Tech; Complete Time: 10:18 [facility] 08/26 10:18 Order name: IV Saline Lock; Complete Time: 10:19 [facility] 08/26 10:18 Order name: Labs collected and sent; Complete Time: 10:23 [facility] 08/26 10:18 Order name: O2 Per Protocol; Complete Time: 10:18 [facility] 08/26 10:18 Order name: O2 Sat Monitoring; Complete Time: 10:18 ld EC:31 Rate is 119 beats/min. Rhythm is irregularly irregular, A fib with Unifocal PVCs. QRS [facility] [place] is Normal. QRS interval is normal at 100 msec. QT interval is normal. No Q waves. T waves are Normal. No ST changes noted. Clinical impression: Atrial Fibrillation. Interpreted by me. Reviewed by me. Administered Medications: 10:30 Drug: Nitroglycerin Sublingual 0.4 mg Sublingual once; every five minute if needed x3 nj1 Route: Sublingual; 10:35 Drug: Nitroglycerin Sublingual 0.4 mg Sublingual once; every five minute if needed x3 nj1 Route: Sublingual; 10:40 Drug: Metoprolol IVP 5 mg IVP once; Hold for SBP <100 or HR <60. Route: IVP; Site: [facility] right hand; Disposition Summary: 08/27/23 11:43 Hospitalization Ordered Notes: Hospitalization Status: Observation jr8 Provider: Iwueke, Izuchukwu jr8 Location: Telemetry/MedSurg (observation) jr8 Condition: Stable jr8 Problem: new jr8 Symptoms: have improved jr8 Bed/Room Type: Standard [facility] Room Assignment: 232(08/27/23 13:50) eb Diagnosis - Chest pain, unspecified jr8 - Persistent atrial fibrillation - With RVR jr8 - Essential (primary) hypertension - Hypertensive emergency jr8 Forms: - Medication Reconciliation Form jr8 - SBAR form jr8 - Leadership Thank You Letter [facility] Signatures: Dispatcher [employer] EDMS Johnnie Martinez PA PA jr8 Mary Jane Staton Lauren RN RN ld1 Mis Stevenson RN RN nj1 Corrections: (The following items were deleted from the chart) 10:19 10:19 Chest Single View+RAD.RAD.BRZ ordered. [facility] EDNJ 13:50 11:43 jr8 eb
--- NOTE | 2023-08-27 11:43 | ER ---
Nurse's Notes [facility] Name: Ramiro Cardoza Age: 68 yrs Sex: Male : 1955 Arrival Date: 08/27/2023 Time: 10:05 Bed 7 Private MD: Diagnosis: Chest pain, unspecified;Persistent atrial fibrillation-With RVR;Essential (primary) hypertension-Hypertensive emergency Presentation: 08/26 10:04 Chief complaint: EMS states: Chest pain, onset while walking at [employer] parking lot. Pale nj1 and diaphoretic. Given 324mg ASA, 0.4mg nitro, 50mcg fentanyl and 4mg zofran. 10:04 Coronavirus screen: Vaccine status: Patient reports receiving the 2nd dose of the covid nj1 vaccine. Ebola Screen: Patient denies travel to an Ebola-affected area in the 21 days before illness onset. Initial Sepsis Screen: Does the patient meet any 2 criteria? HR > 90 bpm. No. Patient's initial sepsis screen is negative. Does the patient have a suspected source of infection? No. Patient's initial sepsis screen is negative. Risk Assessment: Do you want to hurt yourself or someone else? Patient reports no desire to harm self or others. Onset of symptoms was August 27, 2023 at 09:00. 10:04 Method Of Arrival: EMS: [facility] nj1 10:04 Acuity: VICKIE 2 nj1 10:04 Care prior to arrival: Medication(s) given: ASA, 81 mg, x 4, Nitroglycerin, 0.4 mg SL x nj1 1, zofran 4 mg, Fentanyl 50mcg IV initiated. 20 GA, in the right hand. Historical: - Allergies: 10:17 Codeine; nj1 - Home Meds: 10:17 Diltiazem Oral daily [Active]; Eliquis 2.5 mg Oral tab 1 tab 2 times per day [Active]; nj1 Metoprolol Tartrate Oral every 12 hours [Active]; rosuvastatin oral daily [Active]; - PMHx: 10:17 Atrial Fib; chronic back pain; Hypertension; Hypercholesterolemia; nj1 - Immunization history:: Client reports receiving the 2nd dose of the Covid vaccine. - Infectious Disease History:: Denies. - Social history:: Smoking status: Patient denies any tobacco usage or history of. Screenin:13 [facility] ED Fall Risk Assessment (Adult) History of falling in the last 3 months, nj1 including since admission No falls in past 3 months (0 pts) Confusion or Disorientation No (0 pts) Intoxicated or Sedated No (0 pts) Impaired Gait No (0 pts) Mobility Assist Device Used No (0 pt) Altered Elimination No (0 pt) Score/Fall Risk Level 0 - 2 = Low Risk Oriented to surroundings, Maintained a safe environment, Hourly rounding (assess needs \T\ fall precautionary measures) done. Abuse screen: Denies threats or abuse. Denies injuries from another. Nutritional screening: No deficits noted. Tuberculosis screening: No symptoms or risk factors identified. Assessment: 10:10 General: Appears uncomfortable, Behavior is calm, cooperative, appropriate for age. nj1 Pain: Complains of pain in back and chest Pain currently is 7 out of 10 on a pain scale. Quality of pain is described as pressure, Pain began 1 hour ago. Also complains of diaphoresis. Neuro: Level of Consciousness is awake, alert, obeys commands, Oriented to person, place, time, situation. 10:10 Cardiovascular: pale, diaphoretic. Rhythm is atrial fibrillation Chest pain is located nj1 in left anterior. Respiratory: Airway is patent Respiratory effort is even, unlabored. Derm: Skin is diaphoretic, Skin is pale. 10:58 Reassessment: Patient appears in no apparent distress at this time. Patient and/or nj1 family updated on plan of care and expected duration. Pain level reassessed. Patient is alert, oriented x 3, equal unlabored respirations, skin warm/dry/pink. 12:10 Reassessment: Patient appears in no apparent distress at this time. Patient and/or nj1 family updated on plan of care and expected duration. Pain level reassessed. Patient is alert, oriented x 3, equal unlabored respirations, skin warm/dry/pink. 13:05 Reassessment: Patient appears in no apparent distress at this time. Patient and/or nj1 family updated on plan of care and expected duration. Pain level reassessed. Patient is alert, oriented x 3, equal unlabored respirations, skin warm/dry/pink. Reassessment: Patient states feeling better. Patient states symptoms have improved. Pain: Denies pain. 14:19 Reassessment: Patient appears in no apparent distress at this time. Patient and/or nj1 family updated on plan of care and expected duration. Pain level reassessed. Patient is alert, oriented x 3, equal unlabored respirations, skin warm/dry/pink. Vital Signs: 10:04 BP 163 / 119; Pulse 115; Resp 22; Temp 96.7(A); Pulse Ox 98% on R/A; Weight 127.01 kg; nj1 Height 6 ft. 0 in. ; Pain 7/10; 10:30 BP 169 / 100; Pain 7/10; nj1 10:35 BP 160 / 83; Pain 5/10; nj1 10:40 BP 147 / 107; Pulse 126; Resp 25; Pulse Ox 95% on R/A; Pain 5/10; nj1 10:45 BP 118 / 84; Pulse 111; Resp 22; Pulse Ox 97% on R/A; nj1 10:56 BP 136 / 104; Pulse 96; Resp 26; Pulse Ox 98% on R/A; nj1 11:39 BP 142 / 90; Pulse 103; Resp 18; Pulse Ox 98% on R/A; ld1 12:10 BP 127 / 87; Pulse 105; Resp 20; Pulse Ox 94% on R/A; nj1 12:17 BP 127 / 87; Pulse 105; Resp 18; Pulse Ox 95% on R/A; ld1 14:17 BP 134 / 96; Pulse 104; Resp 12; Temp 97.3(TE); Pulse Ox 97% ; nj1 10:04 Body Mass Index 37.98 (127.01 kg, 182.88 cm) nj1 10:04 Pain Scale: Adult nj1 10:30 Pain Scale: Adult nj1 10:35 Pain Scale: Adult nj1 10:40 Pain Scale: Adult nj1 ED Course: 10:08 Patient arrived in ED. eb 10:09 Johnnie Martinez PA is PHCP. jr8 10:09 Jose A Cerrato MD is Attending Physician. jr8 10:14 Mis Stevenson, DAV is Primary Nurse. nj1 10:17 Triage completed. nj1 10:20 Arm band placed on right wrist. nj1 10:20 Patient has correct armband on for positive identification. Bed in low position. Call nj1 light in reach. Side rails up X 1. 10:20 Provided Education on: call light, fall precautions. nj1 10:20 EKG done, by ED staff, reviewed by Johnnie AGUILAR. jr12 10:20 Maintain EMS IV. Good blood return noted. Site clean \T\ dry. Gauge \T\ site: 20g R Hand. nj 1 Changed dressing on right hand saline lock. 10:33 XRAY Chest (1 view) In Process Unspecified. EDMS 11:41 Lary Cisneros MD is Hospitalizing Provider. jr8 14:20 No provider procedures requiring assistance completed. Patient admitted, IV remains in nj1 place. Administered Medications: 10:30 Drug: Nitroglycerin Sublingual 0.4 mg Sublingual once; every five minute if needed x3 nj1 Route: Sublingual; 10:35 Drug: Nitroglycerin Sublingual 0.4 mg Sublingual once; every five minute if needed x3 nj1 Route: Sublingual; 10:40 Drug: Metoprolol IVP 5 mg IVP once; Hold for SBP <100 or HR <60. Route: IVP; Site: [facility] right hand; Medication: 14:20 VIS not applicable for this client. nj1 Outcome: 11:43 Decision to Hospitalize by Provider. jr8 14:20 Admitted to Med/surg accompanied by tech, via wheelchair, room 220, [facility] 14:20 Condition: stable 14:20 Instructed on the need for admit, 15:17 Patient left the ED. eb Signatures: Dispatcher [employer] EDMD Johnnie Martinez PA PA jr8 Mary Jane Staton eb Rosie Peacock RN RN ld1 Mis Stevenson RN RN nj1 Sherri Barrera jr12
--- NOTE | 2023-08-27 13:30 | P.HP ---
Certification for Inpatient Patient admitted to: Inpatient With expected LOS: >2 Midnights Patient will require the following post-hospital care: None Practitioner: I am a practitioner with admitting privileges, knowledge of patient current condition, hospital course, and medical plan of care. Services: Services provided to patient in accordance with Admission requirements found in Title 42 Section 412.3 of the Code of Federal Regulations <Sheila Mccall - Last Filed: 08/27/23 13:53> Patient History Date of Service: 08/27/23 Primary Care Provider: Lisa Reason for admission: Chest pain, shortness of breath History of Present Illness: Mr. Cardoza is a 68-year-old male with a past medical history of hypertension, A-fib, hyperlipidemia. He used to see Dr. Pickering in [place] but his insurance changed. He states he had an echo and stress test last in April 2019. He denies any surgical intervention in the past. Currently he takes metoprolol, diltiazem, Eliquis, and rosuvastatin. He states that he has not taken his blood pressure medications in 2 days. Today he was walking across the parking lot from [facility] and began to have palpitations, left chest pain, and shortness of breath. He states that this has happened before, but this was the first time he had such pain "centering over the top of my heart". He denies nausea, cough, diaphoresis, dizziness, or syncope. He admits to palpitations and shortness of breath. This was partially relieved with nitro per EMS. On exam he is calm, comfortable, and states his pain is down from a 9 to a 2 (still centered over his left chest.) He is mildly pale and appears fatigued. His initial blood pressure in the emergency department was 163/119 with a heart rate of 115. At this time his vital signs are blood pressure 127/87, heart rate 105, respiratory rate 18, 95% on room air. His EKG shows atrial fibrillation with some ST depression in leads II, III and aVF and occasional PVCs. Chest x-ray impression is "nonspecific linear opacification in lung bases could reflect atelectasis, pneumonitis, or mild pneumonia." Laboratory evaluation unremarkable with a WBC of 10.8, H/H 16.5/49.7 with platelets of 211, electrolytes unremarkable, initial troponin 4.9. Mr. Cardoza will be admitted for further evaluation and consult with cardiology. Home medications list reviewed: Yes - Past Medical/Surgical History Has patient received pneumonia vaccine in the past: No -: HTN -: HLD -: A. Fib Past Surgical History: Patient denies surgical history Psychosocial/ Personal History: Lives at home in an apartment with his of 55 years - Family History Father -: Heart disease, Hypertension, Lung disease - Social History Smoking Status: Never smoker Patient receptive to therapy: No (rare ounce of wine ) Alcohol use: Yes CD- Drugs: No Caffeine use: Yes Place of Residence: Home <Sheila Mccall - Last Filed: 08/27/23 13:53> Date of Service: 08/27/23 <Lary Cisneros - Last Filed: 08/27/23 17:00> Allergies codeine Allergy (Verified 07/22/21 12:43) UNK Review of Systems 10-point ROS is otherwise unremarkable General: As per HPI Cardiovascular: As per HPI <Sheila Mccall - Last Filed: 08/27/23 13:53> Physical Examination - Physical Exam General: Alert, In no apparent distress, Oriented x3 HEENT: Atraumatic, Normocephalic Neck: Supple, No Thyromegaly Respiratory: Clear to auscultation bilaterally Cardiovascular: Edema (left lower ext mildly greater than right), Irregular heart rate/rhythm Capillary refill: <2 Seconds Gastrointestinal: Soft and benign Musculoskeletal: No clubbing Integumentary: Other (Pallor) Neurological: Normal speech, Normal tone, Normal affect Lymphatics: No axilla or inguinal lymphadenopathy External genitalia: Deferred Rectal: Deferred - Studies Laboratory Data (last 24 hrs) 08/27/23 08/27/23 10:20 10:20 WBC 10.80 Hgb 16.5 Hct 49.7 H Plt Count 211 Sodium 138 Potassium 3.7 BUN 11 Creatinine 1.04 Glucose 127 H <Sheila Mccall - Last Filed: 08/27/23 13:53> - Studies Laboratory Data (last 24 hrs) 08/27/23 08/27/23 10:20 10:20 WBC 10.80 Hgb 16.5 Hct 49.7 H Plt Count 211 Sodium 138 Potassium 3.7 BUN 11 Creatinine 1.04 Glucose 127 H <Lary Cisneros - Last Filed: 08/27/23 17:00> Assessment and Plan - Plan A. Fib with RVR ChadVasc score - 2 Continue medications for rate control Anticoagulation Echocardiogram Cardiology consultation Repeat chest x-ray Hypertension continue home meds Hyperlipidemia continue home meds VRE/GI prophylaxis On Eliquis/protonix - Advance Directives Does patient have a Living Will: No Does patient have a Durable POA for Healthcare: No <Sheila Mccall Arturo - Last Filed: 08/27/23 13:53> - Plan Pt seen and examined. I agree with the note by the UX CONSULTANT. Pt is a 68yo male with past medical history of hypertension, A-fib, and hyperlipidemia who presents with palpitations, left chest pain, and shortness of breath. Pt reports that he did not take his BP meds for the past 2 days. The symptoms started after he walked across the parking lot in [facility]. The chest pain is left sided, sharp, non- radiating and intermittent in nature with svereity of 9/10. Nitroglycerin made it feel better. Lab studies show wbc 10.8, cr 1.04, troponin 4.9, and K 3.7. His EKG shows atrial fibrillation with some ST depression in leads II, III and aVF and occasional PVCs. Chest x-ray impression is nonspecific linear opacification in lung bases could reflect atelectasis, pneumonitis, or mild pneumonia. At bedside, pt is in NAD. A/P: A. fib with RVR: Will continue diltiazem drip, therapeutic lovenox, metoprolol and telemetry. Consulted Cardiology. troponin is 4.9-> 220 NSTEMI/Chest pain: troponin is 4.9-> 220. It is due to A. fib. Will trend troponin and continue therapeutic lovenox. Cardiology is following. Htn: continue metroprolol HLD: statin DVT ppx: <Lary Cisneros - Last Filed: 08/27/23 17:00>
[2023-08-27] MEDS ORDERED: SODIUM CHLORIDE 0.9% 10ML INJ IV PRN (13:33)
[2023-08-27] MEDS: DILTIAZEM HCL 60 MG TAB PO SCH (16:27)
[2023-08-27 16:32] LABS: Absolute Monocytes 0.6 K/uL (0.1-1.3); Absolute Neutrophil 9.1 K/uL (1.8-8.0); Basophils % 0.2 % (0-1.3); Eosinophils % 0.1 % (0-4.4); Hemoglobin 15.1 g/dL (13.6-17.9); MCH 28.7 pg (27.0-35.0); MCV 89.7 fL (80-100); MPV 9.4 fL (7.6-11.3); Monocytes % 5.6 % (3.3-12.3); Neutrophils % 85.1 % (41.7-73.7); Platelets 185 thou/uL (152-406); RBC Red Blood Cell Count 5.24 M/uL (4.33-5.43); Red Cell Distribution Width 14.8 % (12.1-15.2)
[2023-08-27 17:10] LABS: White Blood Cell Scan OK (OK)
[2023-08-27 17:13] LABS: Blood Morphology Comment NOT SEEN (NOT SEEN); Platelet Estimate ADEQ
[2023-08-27 17:25] LABS: Anion Gap 10.2 mEq/L (5.0-15.0); Potassium 4.2 mEq/L (3.5-5.1)
[2023-08-27] MEDS: Enoxaparin 120 MG/0.8 ML SYR SQ SCH (17:45)
[2023-08-27] MEDS: METOPROLOL TAR 50 MG TAB PO SCH (17:54)
[2023-08-27] MEDS: ROSUVASTATIN 10 MG TAB PO SCH (20:44)
[2023-08-27] MEDS ORDERED: ENOXAPARIN 100 MG/ML SYR SQ SCH (21:00)
[2023-08-27] MEDS ORDERED: APIXABAN 2.5 MG TABLET PO SCH (21:00)
[2023-08-27] MEDS: KETOROLAC 30 MG/ML INJ IV ONE (21:18)
[2023-08-28 00:11] VITALS: BMI 38.9
[2023-08-28] MEDS ORDERED: NOREPINEPHRINE BITARTRATE/D5W 4 MG/250 ML BAG IV SCH (00:30)
[2023-08-28] MEDS ORDERED: NOREPINEPHRINE 4 MG in D5W 250 ML IV SCH (01:00)
[2023-08-28 05:24] LABS: Absolute Basophils 0.1 K/uL (0-0.5); Absolute Eosinophils 0.1 K/uL (0-0.5); Absolute Lymphocytes (CBC) 2.4 K/uL (0.7-4.9); Absolute Monocytes 0.7 K/uL (0.1-1.3); Absolute Neutrophil 5.5 K/uL (1.8-8.0); Basophils % 0.6 % (0-1.3); Hemoglobin 14.3 g/dL (13.6-17.9); Lymphocytes % 27.5 % (15.3-44.8); MCHC 32.4 g/dL (32.0-36.0); MCV 89.5 fL (80-100); MPV 9.9 fL (7.6-11.3); Monocytes % 8.4 % (3.3-12.3); Neutrophils % 62.5 % (41.7-73.7); Nucleated Red Blood Cells % 0.1 % (0-0); Platelets 178 thou/uL (152-406); RBC Red Blood Cell Count 4.92 M/uL (4.33-5.43); Red Cell Distribution Width 14.7 % (12.1-15.2)
[2023-08-28 05:38] LABS: Anion Gap 9.2 mEq/L (5.0-15.0); Phosphorus 3.8 mg/dL (2.5-4.9); Potassium 4.2 mEq/L (3.5-5.1)
--- NOTE | 2023-08-28 08:11 | P.PN ---
Subjective Date of Service: 08/28/23 Primary Care Provider: Lisa Chief Complaint: Chest pain, shortness of breath Subjective: No C/O voiced (no complaints of pain. Moved to ICU overnight for one episode of hypotension and significantly elevated trop from 4.9 to 21,110.6.) <Sheila Mccall - Last Filed: 08/28/23 08:05> Date of Service: 08/28/23 <Lary Cisneros - Last Filed: 08/28/23 10:55> Review of Systems 10-point ROS is otherwise unremarkable General: As per HPI Cardiovascular: Other (denies CP, SOB), As per HPI <Sheila Mccall - Last Filed: 08/28/23 08:05> Physical Examination - Vital Signs Temperature: 97.5 F Blood Pressure: 138/89 Pulse: 80 Respirations: 14 Pulse Ox (%): 98 - Physical Exam General: Alert, In no apparent distress, Oriented x3, Obese HEENT: Atraumatic, Normocephalic Respiratory: Normal air movement Cardiovascular: Normal pulses, Irregular heart rate/rhythm Capillary refill: <2 Seconds Gastrointestinal: Soft and benign Musculoskeletal: No clubbing Neurological: Normal speech, Normal tone, Normal affect Lymphatics: No axilla or inguinal lymphadenopathy External genitalia: Deferred Rectal: Deferred - Studies Laboratory Data (last 24 hrs) 08/27/23 08/27/23 10:20 10:20 WBC 10.80 Hgb 16.5 Hct 49.7 H Plt Count 211 Sodium 138 Potassium 3.7 BUN 11 Creatinine 1.04 Glucose 127 H <Sheila Mccall - Last Filed: 08/28/23 08:05> - Studies Laboratory Data (last 24 hrs) 08/27/23 08/27/23 10:20 10:20 WBC 10.80 Hgb 16.5 Hct 49.7 H Plt Count 211 Sodium 138 Potassium 3.7 BUN 11 Creatinine 1.04 Glucose 127 H <Lary Cisneros - Last Filed: 08/28/23 10:55> Assessment And Plan - Plan A. Fib with RVR ChadVasc score - 2 Continue medications for rate control - home meds cardizem and metoprolol. A. fib with RVR and then with some filiberto episodes to the 30s. Anticoagulation (home meds of Eliquis 5mg po BID ordered - not given - Lovenox 120mg sc given overnight Echocardiogram Cardiology consultation - Dr. Gonzalez consulted overnight (move pt to ICU) Repeat chest x-ray Hypertension continue home meds Hyperlipidemia continue home meds VRE/GI prophylaxis On Eliquis/protonix <Sheila Mccall - Last Filed: 08/28/23 08:05> - Plan Pt seen and examined. I agree with the note by the COURSEWARE DEVELOPER. Will continue metoprolol, lovenox 120mg po BID and telemetry. He had an episode of bradycardia ( HR dropped to 54 and 57). Will continue therapeutic lovenox for NSTEMI ( troponin trend is 21,110<- 9,192 <- 49). Consulted Cardiology. <Lary Cisneros - Last Filed: 08/28/23 10:55>
[2023-08-28] MEDS: PANTOPRAZOLE 40 MG INJ IVP SCH (08:33)
--- NOTE | 2023-08-28 12:51 | P.CNS ---
Date of Consult: 08/28/23 Primary Care Provider: Lisa Chief Complaint: Chest pain, shortness of breath History of Present Illness: Patient with PMH of atrial fibrillation on Eliquis and rate control medications, presented with chest pain that started yesterday, felt like pressure sensation, felt dizzy. lightheaded with it and SOB, upon exam today patient was chest pain free. Allergies codeine Allergy (Verified 08/27/23 20:48) UNK Home Medications: Apixaban [Eliquis] 2.5 mg PO BID 08/28/23 Metoprolol Tartrate 25 mg PO BID 08/28/23 dilTIAZem HCL [Diltiazem 24Hr ER (Xr)] 240 mg PO DAILY 08/28/23 - Past Medical/Surgical History -: HTN -: HLD -: A. Fib Psychosocial/ Personal History: Lives at home in an apartment with his of 55 years - Family History Father Medical History: Heart disease, Hypertension, Lung disease - Social History Alcohol use: Yes CD- Drugs: No Caffeine use: Yes Place of Residence: Home Review of Systems 10-point ROS is otherwise unremarkable Physical Examination Temp Pulse Resp BP Pulse Ox 97.5 F 86 20 130/83 94 08/28/23 08:11 08/28/23 10:00 08/28/23 10:00 08/28/23 10:00 08/28/23 10:00 General: Alert, In no apparent distress HEENT: Atraumatic, PERRLA, Mucous membr. moist/pink, EOMI, Sclerae nonicteric Neck: Supple, 2+ carotid pulse no bruit, No LAD, Without JVD or thyroid abnormality Respiratory: Clear to auscultation bilaterally, Normal air movement Cardiovascular: No edema, Irregular heart rate/rhythm Gastrointestinal: Normal bowel sounds, No tenderness Musculoskeletal: No tenderness Integumentary: No rashes Neurological: Normal gait, Normal speech, Normal tone, Normal affect Lymphatics: No axilla or inguinal lymphadenopathy - Problems (1) NSTEMI (non-ST elevated myocardial infarction) Current Visit: Yes Status: Acute Plan: Patient with ST depressions inferior leads and no ST elevation, troponin signficantly trended up but he is chest pain free at this time, will do Coronary angiogram in am, explained to patient in details and he agrees to proceed. NPO after midnight for coronary angiogram in am ASA 81 mg daily Increase Crestor to 40 mg daily Continue therapeutic Lovenox. (2) Atrial fibrillation Current Visit: Yes Status: Acute Plan: rate controlled Continue Lopressor 12.5 mg po BID Lovenox (NO tomorrow am dose) (3) HLD (hyperlipidemia) Current Visit: Yes Status: Acute
[2023-08-28] MEDS: METOPROLOL TAR 25 MG TAB PO SCH (18:00)
[2023-08-28] MEDS: ROSUVASTATIN 10 MG TAB PO SCH (20:55)
[2023-08-29 04:41] LABS: Absolute Basophils 0.1 K/uL (0-0.5); Absolute Eosinophils 0.1 K/uL (0-0.5); Absolute Lymphocytes (CBC) 2.4 K/uL (0.7-4.9); Absolute Monocytes 0.7 K/uL (0.1-1.3); Absolute Neutrophil 4.9 K/uL (1.8-8.0); Basophils % 0.7 % (0-1.3); Eosinophils % 1.6 % (0-4.4); Hematocrit 45.1 % (39.6-49.0); Lymphocytes % 29.3 % (15.3-44.8); MCH 29.5 pg (27.0-35.0); MCHC 33.2 g/dL (32.0-36.0); MPV 9.3 fL (7.6-11.3); Monocytes % 8.3 % (3.3-12.3); Neutrophils % 60.1 % (41.7-73.7); Nucleated Red Blood Cells % 0.1 % (0-0); Platelets 162 thou/uL (152-406); RBC Red Blood Cell Count 5.07 M/uL (4.33-5.43); Red Cell Distribution Width 14.7 % (12.1-15.2)
[2023-08-29 05:02] LABS: Anion Gap 9.1 mEq/L (5.0-15.0); Magnesium 2.3 mg/dL (1.6-2.4); Potassium 4.1 mEq/L (3.5-5.1)
[2023-08-29] MEDS ORDERED: NITROGLYCERIN/D5W 50 MG/250 ML BTL IV ONE (07:55)
[2023-08-29] MEDS ORDERED: HEPA 1000U/500MLS 2,000 UNIT/1,000 ML BAG IV ONE (07:55)
[2023-08-29] MEDS ORDERED: VERAPAMIL HCL 10 MG/4 ML VIAL IV ONE (07:56)
[2023-08-29] MEDS ORDERED: FENTANYL CITR 100 MCG/2 ML ONE (07:56)
[2023-08-29] MEDS ORDERED: MIDAZOLAM HCL 2 MG/2 ML INJ ONE (07:56)
[2023-08-29] MEDS ORDERED: ATROPINE SULF 1 MG/10 ML SYR IV ONE (07:56)
[2023-08-29] MEDS ORDERED: HEPARIN 10,000 UNIT/10 ML VIAL IV ONE (07:57)
[2023-08-29] MEDS ORDERED: TICAGRELOR 90 MG TABLET PO ONE (07:57)
[2023-08-29] MEDS ORDERED: CLOPIDOGREL 75 MG TABLET ONE (07:57)
[2023-08-29] MEDS ORDERED: HEPARIN 5000 UNIT/ML 1 ML VIAL ONE (07:57)
[2023-08-29] MEDS ORDERED: LIDOCAINE 1% 20 ML MDV ONE (08:03)
[2023-08-29] MEDS ORDERED: NA CHLORIDE 0.9% 500 ML ONE (08:08)
[2023-08-29 08:23] VITALS: O2SAT 97
[2023-08-29 08:47] VITALS: TEMP 97.8
[2023-08-29] MEDS: ONDANSETRON 4 MG/2 ML VIAL ONE (09:25)
--- NOTE | 2023-08-29 09:28 | P.PN ---
Subjective Date of Service: 08/29/23 Primary Care Provider: Lisa Chief Complaint: Chest pain, shortness of breath Subjective: No new changes, No C/O voiced, Tolerating diet, Ambulating, Improving Review of Systems 10-point ROS is otherwise unremarkable Physical Examination - Vital Signs Temperature: 97.8 F Blood Pressure: 153/103 Pulse: 117 Respirations: 16 Pulse Ox (%): 97 - Physical Exam General: Alert, In no apparent distress HEENT: Atraumatic, PERRLA, EOMI Neck: Supple, JVD not distended Respiratory: Clear to auscultation bilaterally, Normal air movement Cardiovascular: Regular rate/rhythm, Normal S1 S2 Gastrointestinal: Normal bowel sounds, No tenderness Musculoskeletal: No tenderness Integumentary: No rashes Neurological: Normal speech, Normal tone, Normal affect Lymphatics: No axilla or inguinal lymphadenopathy - Studies Medications List Reviewed: Yes Assessment And Plan - Current Problems (Diagnosis) (1) NSTEMI (non-ST elevated myocardial infarction) Current Visit: Yes Status: Acute Plan: Patient with ST depressions inferior leads and no ST elevation, troponin signficantly trended up Coronary angiogram done and shows multivessel CAD. Initiate transfer to [facility], already contacted surgeon (Dr. Orona) and they are aware about patient needing urgent CABG. ASA 81 mg daily Increase Crestor to 40 mg daily Continue therapeutic Lovenox. (2) Atrial fibrillation Current Visit: Yes Status: Acute Plan: rate controlled Continue Lopressor 12.5 mg po BID Lovenox. (3) HLD (hyperlipidemia) Current Visit: Yes Status: Acute Plan: Continue statins
[2023-08-29] MEDS: ONDANSETRON 4 MG/2 ML VIAL IV ONE (09:31)
--- NOTE | 2023-08-29 09:36 | OP ---
Date of Procedure: 08/29/2023 Surgeon: Jesus Gonzalez Procedures Performed: 1.Left heart catheterization. 2.Selective coronary angiogram. Indication For Procedure: Non-ST elevation myocardial infarction. Sedation: Sedation time is 20 minutes with 2 of Versed and 50 of fentanyl. Complications: None. Estimated Blood Loss: Less than 50 mL. Access: Right radial, closed by TR band. Description Of Procedure: After risks, benefits, and alternatives were explained to the patient, the patient agreed to procedure and signed informed consent. The patient was brought back to the cath l ab, prepped and draped in a sterile fashion. Time-out was performed. Sedation was administered. [facility] radial access was obtained using an ultrasound-guided micropuncture technique. [place] 4 catheter was advanced to the LV cavity. LVEDP was obtained, pullback did not show any gradient. Selective ch olangiogram was done using the same catheter of the left and right coronary systems. Same catheter w as pulled back to the left subclavian and subclavian angiogram was done. At the end of procedure, ca theter was removed over a J-wire. Sheath was removed and TR band was applied. The patient was moved back to recovery in stable condition. Findings: 1.Left main is normal. 2.LAD, proximal [employer], gets [id number] collaterals, large. 3.Diagonal 1 is large, mid 80% disease and mild LI. 4.Left circ, proximal 60% disease, gives a small OM1, then continue as OM2 that got mid 99% to 100% fresh occlusion, also gets left ahipc-cj-tkho collaterals. 5.RCA; large, dominant, proximal 40% disease and mid 70% disease. Distal mild LI. Gives collateral s to the LAD and OM2. 6.RPDA, mild LI. 7.Left subclavian/BORGES patent. 8.LVEDP is 8 mmHg. 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 2.Mid diagonal significant disease. Large artery needs to be bypassed. 3.Mid OM2 99% to 100% disease, most likely the culprit for the hlh-JK-[id number] myocardial infarctio n, gets also dagly-nt-pcxt collaterals. 4.Mid right coronary artery disease. The plan will be to transfer for inpatient coronary artery bypass graft. PEDRO/MODL Voice ID: [id number] Report ID: [id number]
[2023-08-29 12:18] VITALS: BP 110/76
--- NOTE | 2023-08-30 14:15 | EKG ---
Test Date: 2023-08-29 Test Time: 09:46:42 Engineering Group Leader: LIZ MEASUREMENT RESULTS: Intervals: Rate: 97 OR: QRSD: 96 QT: 386 QTc: 490 [place]: P: OR: QRS: -63 T: 136 INTERPRETIVE STATEMENTS: Atrial fibrillation Left axis deviation Pulmonary disease pattern T wave abnormality, consider lateral ischemia or digitalis effect Prolonged QT Abnormal ECG Compared to ECG 08/27/2023 23:04:39 Left-axis deviation now present T-wave abnormality now present Possible ischemia now present Prolonged QT interval now present Indeterminate axis no longer present Myocardial infarct finding no longer present Electronically Signed On 08-30-23 14:12:13 CDT by Aguila Cartagena
--- NOTE | 2023-08-30 14:21 | EKG ---
Test Date: 2023-08-27 Test Time: 23:04:39 Laborer Drying Department: HB MEASUREMENT RESULTS: Intervals: Rate: 67 [place]: QRSD: 82 QT: 458 QTc: 483 [place]: P: WI: QRS: -12 T: 103 INTERPRETIVE STATEMENTS: Atrial fibrillation Indeterminate axis Septal infarct, age undetermined Abnormal ECG Compared to ECG 08/27/2023 10:13:36 Indeterminate axis now present Myocardial infarct finding now present ST (T wave) deviation no longer present Possible ischemia no longer present Electronically Signed On 08-30-23 14:14:06 CDT by Aguila Cartagena
--- NOTE | 2023-08-30 14:24 | EKG ---
Test Date: 2023-08-27 Test Time: 10:13:36 [employer] Data [employer] Lead: MILO MEASUREMENT RESULTS: Intervals: Rate: 119 NM: QRSD: 100 QT: 360 QTc: 506 [place]: P: NM: QRS: 33 T: -4 INTERPRETIVE STATEMENTS: Undetermined rhythm ST & T wave abnormality, consider inferior ischemia Abnormal ECG Compared to ECG 07/22/2021 11:04:16 ST (T wave) deviation now present Possible ischemia now present Atrial fibrillation no longer present Ventricular premature complex(es) no longer present Left-axis deviation no longer present Electronically Signed On 08-30-23 14:14:41 CDT by Aguila Cartagena
== END 2023-08-29 12:22 | disposition short-term general hospital (02) | DRG 281 ==
LOC: ER 10:05 → ERHOLD 13:30 → 2ND 14:03 → 3RD-ICU 23:49
PROVIDERS: ADMIT Hospitalist; ATTEND Hospitalist
PROC: 4A023N7 Measurement of Cardiac Sampling and Pressure, Left Heart, Percutaneous Approach (ICD-10-PCS; principal; 2023-08-29)
PROC: B2111ZZ Fluoroscopy of Multiple Coronary Arteries using Low Osmolar Contrast (ICD-10-PCS; 2023-08-29)
DX: I21.4 Non-ST elevation (NSTEMI) myocardial infarction (principal); I16.1 Hypertensive emergency; I48.19 Other persistent atrial fibrillation; I10 Essential (primary) hypertension; I49.3 Ventricular premature depolarization; E78.00 Pure hypercholesterolemia, unspecified; G89.29 Other chronic pain; M54.9 Dorsalgia, unspecified; Z88.5 Allergy status to narcotic agent; Z79.01 Long term (current) use of anticoagulants; Z79.899 Other long term (current) drug therapy
CPT/HCPCS: 36415; 71045; 76937; 80048; 80061; 82947; 83735; 84100; 84443; 84484; 85025; 93005; 93458; 96374; 99152; 99285; C1893; C9113; J0461; J1644; J1650; J2001; J2250; J2405; J3010; J7040; Q9966